=== PATIENT | female | born 1960 | race Two or more races ===

== ENCOUNTER 2020-10-03 10:12 | Outpatient (REF) | payer MEDICAID, SELFPAY ==
--- NOTE | ~2020-10-03 | MM_ITS ---
EXAMINATION: MM DIAGNOSTIC DIGITAL BREAST TOMOSYNTHESIS, BILATERAL CLINICAL INFORMATION: Due for yearly. Follow-up probable benign calcifications central lower left breast and posterior outer right breast. No known family history breast cancer. The lifetime risk of breast cancer based on the Tyrer-Cuzick Model is 6%. COMPARISON: Mammography: 10/03/2019, 04/11/2019, 10/11/2018, 09/23/2018 (BI-RADS 0, 09/13/2017 TECHNIQUE: Digital breast tomosynthesis is performed in both the craniocaudal and mediolateral oblique views along with computer-aided detection (CAD). Synthesized 2D images are generated from the tomosynthesis. Additional magnification views are obtained: Bilateral CC, bilateral ML additional views left breast also obtained: Spot CC and rolled CC x2. FINDINGS: There are scattered areas of fibroglandular density (ACR BI-RADS breast composition Category b). Parenchymal pattern is similar to prior studies. There is no interval mass or architectural abnormality or developing density. There are questionable small asymmetric density mid inner left breast on the CC view shows no persistence on the additional rolled or spot projection. The calcifications for follow-up central 5:00 left breast and posterior outer right breast are stable from prior diagnostic exams. This concludes the long-term surveillance. They are now considered benign. Results are provided to the patient at time of visit by the technologist. MM/MM tomosynthesis diagnostic BI IMPRESSION: 1. No significant changes from prior studies. 2. The bilateral calcifications for follow-up are stable from prior diagnostic exams and now considered benign. ASSESSMENT: BI-RADS 2: Benign RECOMMENDATION: Routine annual mammography screening. This patient's information was entered into a reminder system with a target due date for their next mammogram.
== END 2020-10-03 10:13 | disposition home or self-care (01) ==
LOC: HO.MAMMO 10:12
PROVIDERS: Visit Provider Internal Medicine
DX: R92.1 Mammographic calcification found on diagnostic imaging of breast (principal)
CPT/HCPCS: 77062; 77066

== ENCOUNTER 2021-01-10 11:14 | Outpatient (REF) | payer MEDICAID, SELFPAY ==
--- NOTE | ~2021-01-10 | XR_ITS ---
EXAMINATION: XR THORACIC SPINE CLINICAL INFORMATION: Dorsal joint. COMPARISON: None. TECHNIQUE: AP, lateral, and swimmer's views of the thoracic spine. FINDINGS: Mild levocurvature of the lower thoracic spine centered at the T11 vertebral body. The thoracic kyphosis is maintained. No acute fracture or subluxation. No loss of vertebral body or intervertebral disc height. No lytic or blastic osseous lesion. The visualized lungs are clear. XR/XR thoracic spine 2V IMPRESSION: No acute osseous normality. Minimal levocurvature of the lower thoracic spine, centered at the T11 vertebral body.
== END 2021-01-10 11:15 | disposition home or self-care (01) ==
LOC: HO.XRAY 11:14
PROVIDERS: PCP Internal Medicine; Visit Provider Internal Medicine
DX: M54.9 Dorsalgia, unspecified (principal)
CPT/HCPCS: 72070

== ENCOUNTER 2021-06-04 11:00 | Outpatient (RCR) | payer MEDICAID, SELFPAY | END 2021-07-29 14:11 | disposition home or self-care (01) | LOC: HO.PT 11:00 | PROVIDERS: PCP Internal Medicine; Visit Provider Registered Nurse Community Health | DX: M54.9 Dorsalgia, unspecified (principal) | CPT/HCPCS: 97110; 97161; 97530 ==

== ENCOUNTER 2021-12-17 10:18 | Outpatient (REF) | payer MEDICAID, SELFPAY ==
--- NOTE | ~2021-12-17 | XR_ITS ---
EXAMINATION: XR thoracic spine 3V CLINICAL INFORMATION: Reason for Exam DORSALGIA COMPARISON: Thoracic spine radiographs 01/10/2021 TECHNIQUE: 3 views of the thoracic spine FINDINGS: Vertebral body heights are maintained. Mild levoconvex curvature of the thoracolumbar spine centered at T11 unchanged. Disc space heights are maintained. Paravertebral soft tissues are unremarkable. XR/XR thoracic spine 3V IMPRESSION: Mild levoconvex curvature of the thoracolumbar spine unchanged.
--- NOTE | ~2021-12-17 | XR_ITS ---
EXAMINATION: XR chest 2V CLINICAL INFORMATION: Reason for Exam DORSALGIA COMPARISON: None TECHNIQUE: 2 views of the chest FINDINGS: Clear lungs. No pneumothorax or pleural effusion. Normal cardiomediastinal silhouette. XR/XR chest 2V Impression: * Clear lungs.
== END 2021-12-17 10:19 | disposition home or self-care (01) ==
LOC: HO.XRAY 10:18
PROVIDERS: PCP Internal Medicine; Visit Provider Internal Medicine
DX: M54.9 Dorsalgia, unspecified (principal)
CPT/HCPCS: 71046; 72072

== ENCOUNTER 2022-03-13 10:34 | Outpatient (REF) | payer MEDICAID, SELFPAY ==
--- NOTE | ~2022-03-13 | MM_ITS ---
EXAMINATION: MM SCREENING DIGITAL BREAST TOMOSYNTHESIS, BILATERAL CLINICAL INFORMATION: Screening. Asymptomatic. The lifetime risk of breast cancer based on the Tyrer-Cuzick Model is 5%. COMPARISON: Mammography: 10/03/2020, 10/03/2019, 04/11/2019 TECHNIQUE: Digital breast tomosynthesis is performed in both the craniocaudal and mediolateral oblique views along with computer-aided detection (CAD). Synthesized 2D images are generated from the tomosynthesis. Additional left CC view is provided. FINDINGS: There are scattered areas of fibroglandular density (ACR BI-RADS breast composition Category b). There are no significant masses, abnormal calcifications, or other abnormalities. Parenchymal pattern is similar to prior studies. There is no developing density or architectural abnormality. The axilla and skin contours are unremarkable. No significant changes. MM/MM tomosynthesis screening BI IMPRESSION: -No significant changes from prior exams. -No mammographic evidence of malignancy. ASSESSMENT: BI-RADS 2: Benign RECOMMENDATION: Routine annual mammography screening. This patient's information was entered into a reminder system with a target due date for their next mammogram.
== END 2022-03-13 10:35 | disposition home or self-care (01) ==
LOC: HO.MAMMO 10:34
PROVIDERS: PCP Internal Medicine; Visit Provider Internal Medicine
DX: Z12.31 Encounter for screening mammogram for malignant neoplasm of breast (principal)
CPT/HCPCS: 77063; 77067

== ENCOUNTER → 2022-04-01 14:15 | Outpatient (BNVA) | payer MEDICAID, SELFPAY | PROVIDERS: PCP Internal Medicine; Visit Provider Surgery | DX: Z12.11 Encounter for screening for malignant neoplasm of colon (principal) | CPT/HCPCS: 99202 ==

== ENCOUNTER 2022-06-16 05:56 | Day surgery (SDC) | payer MEDICAID, SELFPAY ==
[2022-05-04 12:03] VITALS: BMI 20.5
--- NOTE | 2022-05-07 08:58 | HO.ANESPROP2 ---
HPI - Anesthesia Eval Consult details Narrative: 61yo F for Colonoscopy with poss Polypectomy PMFSH Active Problems Active Problems: All Active Problems (Updated 04/01/22 @ 14:33 by Deny Avila MD) Colon cancer screening (Acute) Hyperlipidemia (Acute) Hypertension (Acute) Past Medical History Medical History (Updated 04/01/22 @ 14:33 by Deny Avila MD) Colon cancer screening Hyperlipidemia Hypertension Surgical History Surgical History (Updated 05/04/22 @ 11:52 by Idalmis Teague RN) History of colonoscopy Hx of tubal ligation Social History Social History Alcohol intake: never Patient Tobacco Use Status: Never used Tobacco Meds Allergies Allergy/AdvReac Type Severity Reaction Status Date / Time lisinopril AdvReac Mild Cough Verified 05/04/22 11:53 Home Medications Medication Instructions Recorded Confirmed Last Taken Type amlodipine 10 mg tablet 10 mg PO DAILY 04/01/22 05/04/22 Unknown History atorvastatin 40 mg tablet 40 mg PO DAILY 04/01/22 05/04/22 Unknown History hydrochlorothiazide 25 mg tablet 25 mg PO DAILY 04/01/22 05/04/22 Unknown History loratadine 10 mg tablet (Allergy 10 mg PO DAILY 04/01/22 05/04/22 Unknown History Relief (loratadine)) magnesium oxide 400 mg (241.3 mg 400 mg PO DAILY 04/01/22 05/04/22 Unknown History magnesium) tablet multivitamin 1 tab PO DAILY 04/01/22 05/04/22 Unknown History polyvinyl alcohol 1.4 % eye drops 0 drp ophthalmic (eye) 04/01/22 04/01/22 Unknown History Exam Exam Date and Time: May 07, 2022 0858 Height,Weight and Vital Signs: Height 5 ft 6 in Weight 57.606 kg Assessment and Plan Assessment Anesthesia Assessment: Chart Reviewed
[2022-06-10 16:46] VITALS: BMI 20.5
--- NOTE | 2022-06-15 09:51 | P.CONAN_ITS ---
Documented by User: Rosalind Granados NP 06/15/22 09:52 HPI - Anesthesia Eval Consult details Narrative: 61yo F for Colonoscopy with poss Polypectomy PMFSH Active Problems Active Problems: All Active Problems (Updated 04/01/22 @ 14:33 by Deny Avila MD) Colon cancer screening (Acute) Hyperlipidemia (Acute) Hypertension (Acute) Past Medical History Medical History Colon cancer screening Hyperlipidemia Hypertension Surgical History Surgical History History of colonoscopy Hx of tubal ligation Social History Social History Alcohol intake: never Patient Tobacco Use Status: Never used Tobacco Use of substances other than those prescribed or required for medical reasons: No Are you DNR?: No Advance Directives: No Advance Directives Information Provided: Yes Meds Allergies Allergy/AdvReac Type Severity Reaction Status Date / Time lisinopril AdvReac Mild Cough Verified 06/16/22 06:25 Home Medications Medication Instructions Recorded Confirmed Last Taken Type amlodipine 10 mg tablet 10 mg PO DAILY 04/01/22 06/16/22 06/16/22 05:00 History atorvastatin 40 mg tablet 40 mg PO DAILY 04/01/22 05/04/22 Unknown History hydrochlorothiazide 25 mg tablet 25 mg PO DAILY 04/01/22 05/04/22 Unknown History loratadine 10 mg tablet (Allergy 10 mg PO DAILY 04/01/22 05/04/22 Unknown History Relief (loratadine)) multivitamin 1 tab PO DAILY 04/01/22 05/04/22 Unknown History polyvinyl alcohol 1.4 % eye drops 0 drp ophthalmic (eye) 04/01/22 04/01/22 Unknown History Exam Exam Date and Time: June 15, 2022 0951 Height,Weight and Vital Signs: Height 5 ft 6 in Weight 57.606 kg Assessment and Plan Assessment Anesthesia Assessment: Chart Reviewed Documented by User: Titi Simms MD 06/16/22 07:30 [facility] Past Medical History Medical History Colon cancer screening Hyperlipidemia Hypertension Family History Family history of problems with anesthesia: No Surgical History Surgical History History of colonoscopy Hx of tubal ligation History of Problems with Anesthesia: No Social History Social History Alcohol intake: never Patient Tobacco Use Status: Never used Tobacco Use of substances other than those prescribed or required for medical reasons: No Are you DNR?: No Advance Directives: No Advance Directives Information Provided: Yes Meds Allergies Allergy/AdvReac Type Severity Reaction Status Date / Time lisinopril AdvReac Mild Cough Verified 06/16/22 06:25 Home Medications Medication Instructions Recorded Confirmed Last Taken Type amlodipine 10 mg tablet 10 mg PO DAILY 04/01/22 06/16/22 06/16/22 05:00 History atorvastatin 40 mg tablet 40 mg PO DAILY 04/01/22 05/04/22 Unknown History hydrochlorothiazide 25 mg tablet 25 mg PO DAILY 04/01/22 05/04/22 Unknown History loratadine 10 mg tablet (Allergy 10 mg PO DAILY 04/01/22 05/04/22 Unknown History Relief (loratadine)) multivitamin 1 tab PO DAILY 04/01/22 05/04/22 Unknown History polyvinyl alcohol 1.4 % eye drops 0 drp ophthalmic (eye) 04/01/22 04/01/22 Unknown History Exam Airway Mallampati Class: II TM Dist: >3cm Neck ROM: Full Loose/Missing/Broken Teeth: No Heart: ok Lungs: ok Assessment and Plan Final Anesthetic Review Family History of Problems with Anesthesia: No History of Problems with Anesthesia: No NPO: Yes ASA Class: II Final Preanesthetic Review: No Changes in Pt Med Stat, Meds/Allgs Chart Reviewed, Consent Obtained/Reviewed and Anes Risks/Benef Reviewed Patient Risk: Low Procedure Risk: Low Anesthetic Plan Anesthetic Plan: MAC: and Agree w/ Assess. and Plan Disposition: Standard PACU
[2022-06-16 06:08] VITALS: BP 156/88; PULSE 123; RESP 16; TEMP 36.3; O2SAT 100
[2022-06-16] MEDS: Lactated Ringers 1,000 ML 100 ML IVCONT (06:24)
--- NOTE | 2022-06-16 07:30 | MHC.SHP ---
Pre-Procedural Eval Section A Date of Service: 06/16/22 Section B Chief Complaint: screening Details of Present Illness: For screening colonoscopy, no GI complaints Relevant Family History (Specify if Yes): No Relevant Social History: None Present Medications: see Short Stay Collaborative assessment Medical History: Significant History ( hypertension, hyperlipidemia) Allergies: Allergies Allergy/AdvReac Type Severity Reaction Status Date / Time lisinopril AdvReac Mild Cough Verified 06/16/22 06:25 Review of Systems Sugical H&P ROS: Negative: Constitution, Cardiovascular, Respiratory, Neurological, Psychiatric, Hem-Onc, Allergic/Immunologic, Gastrointestinal, Genitourinary, Musculoskeletal, Integumentary, Endocrine and Eyes/Ears/Nose/Throat Exam Surgical H&P Exam: Normal: HEENT, Normal: Heart, Normal: Lungs, Normal: Extremities, Normal: Abdomen, Normal: Skin and Normal: Neurological Plan Diagnosis/Plan: Unchanged I have reviewed the history and physical and performed a pertinent physical examination on my patient. No changes have occurred unless specified. Time Spent With Patient Time: Total time managing care of this patient today ____ minutes.
--- NOTE | 2022-06-16 08:07 | P.OP_ITS ---
Operative Note Operative Note Date of Service: 06/16/22 Narrative: Preop diagnosis: Colon cancer screening Postop diagnosis: Normal colonoscopy findings Procedure: Screening colonoscopy Surgeon: Deny Avila MD The patient is a 61-year-old female here for screening colonoscopy. She understood the technique of the procedure. She was aware of the risks, benefits, and alternatives. The patient was brought to the operating room and placed in left lateral decubitus position under monitored anesthesia care. A surgical time-out was done. A full digital rectal exam was done and this did not reveal any significant anal lesions. The tip of the Olympus colonoscope was gently introduced through the anal orifice advanced with insufflation all the way to the cecum. The cecum was intubated. The cecum was identified by visualization of the ileocecal valve as well as the appendiceal orifice. The cecal mucosa was unremarkable. The scope was gradually withdrawn with careful examination of the entire colonic mucosa being done with scope withdrawal. The patient had martir quate bowel prep so it was unlikely that any lesion may have been missed. The rectum was reached and there were no lesions seen. The anal canal was unremarkable. The scope was then withdrawn completely with desufflation. The patient tolerated procedure well. There were no immediate complications. Her next colonoscopy may be in the next 10 years.
[2022-06-16 08:17] VITALS: BP 111/67; PULSE 106; RESP 14; TEMP 36.4; O2SAT 98
[2022-06-16 08:30] VITALS: BP 128/79; PULSE 89; RESP 16; O2SAT 99
[2022-06-16 08:47] VITALS: BP 139/83; PULSE 94; RESP 16; TEMP 36.4; O2SAT 99
== END 2022-06-16 09:22 | disposition home or self-care (01) ==
PROVIDERS: PCP Internal Medicine; Visit Provider Surgery
PROC: 0DBE8ZZ Excision of Large Intestine, Via Natural or Artificial Opening Endoscopic (ICD-10-PCS; CPT 45378; principal; 2022-06-16 07:30)
DX: Z12.11 Encounter for screening for malignant neoplasm of colon (principal); I10 Essential (primary) hypertension; E78.5 Hyperlipidemia, unspecified; Z79.899 Other long term (current) drug therapy; Z88.8 Allergy status to other drugs, medicaments and biological substances
CPT/HCPCS: 45378

== ENCOUNTER 2023-01-28 17:42 | Outpatient (REF) | payer MEDICAID, SELFPAY ==
[2023-02-02 18:49] LABS: HPV mRNA E6/E7 rflx Not Detected (Not Detected)
== END 2023-01-28 17:43 | disposition home or self-care (01) ==
LOC: HO.HHCLNP 17:42
PROVIDERS: Visit Provider Advanced Practice Midwife
DX: Z12.4 Encounter for screening for malignant neoplasm of cervix (principal); Z11.51 Encounter for screening for human papillomavirus (HPV)
CPT/HCPCS: 87624; 88142

== ENCOUNTER 2023-02-18 11:00 | Outpatient (REF) | payer MEDICAID, SELFPAY ==
[2023-02-18 13:01] LABS: MANUAL DIFF FLAG NO
[2023-02-18 13:14] LABS: Basophils Absolute Auto 0.1 X10*3/uL (0.0-0.2); Basophils Percent Auto 1.2 % (0-2); Eosinophils Percent Auto 0.9 % (0-4); Hematocrit 41.9 % (37.0-47.0); Imm Gran Abs Auto 0.01 X10*3/uL (0.00-0.03); Imm Gran Pct Auto 0.2 % (0.0-0.4); Lymphocytes Absolute Auto 1.5 X10*3/uL (1.2-4.9); Lymphocytes Percent Auto 34.3 % (20-40); Mean Corpuscular HGB Conc 33.4 g/dl (31.0-35.0); Mean Corpuscular Hemoglobin 30.9 pg (27.0-33.0); Mean Corpuscular Volume 92.5 fL (80.0-98.0); Mean Platelet Volume 10.5 fL (9.4-12.3); Monocytes Absolute Auto 0.3 X10*3/uL (0.1-1.2); Monocytes Percent Auto 7.9 % (2-11); Neutrophils Absolute Auto 2.4 x10*3/uL (2.0-8.3); Neutrophils Percent Auto 55.5 % (45-73); Platelet Count 329 X10*3/uL (160-400); Red Blood Count 4.53 X10*6/uL (4.20-5.50); Red Cell Distribution Width 11.9 % (11.0-16.0); White Blood Count 4.3 X10*3/uL (4.8-10.8)
[2023-02-18 13:47] LABS: TSH reflex Free T4 0.93 uIU/mL (0.32-4.0)
[2023-02-19 08:03] LABS: Syphilis Screen Nonreactive (Nonreactive)
[2023-02-20 05:35] LABS: Lyme Abs Screen <0.90 index
== END 2023-02-18 11:01 | disposition home or self-care (01) ==
LOC: HO.HHCL 11:00
PROVIDERS: Visit Provider Internal Medicine
DX: L42 Pityriasis rosea (principal)
CPT/HCPCS: 36415; 84443; 85025; 86617; 86618; 86780

== ENCOUNTER 2023-02-24 13:17 | Outpatient (AMB) | payer MEDICAID, SELFPAY ==
--- NOTE | 2023-02-24 13:32 | A.OFFVIS_ITS ---
Intake Vital Signs 02/24/23 13:34 Height 5 ft 5 in Weight 130 lb 1.164 oz BMI 21.6 BP 150/86 H Blood Pressure Location Lt brachial Position Sitting Pulse 102 H Intake Visit Reasons: NPV/HHC/Zarate Adan/Hypertension Intake Note: NPV w EKG Accompanied by: Self / Same As Patient Allergies lisinopril Adverse Reaction (Mild, Verified 02/24/23 13:35) Cough Medication List - Last Reconciled 02/24/23 by Zane Huertas MD amlodipine 10 mg PO DAILY atorvastatin 40 mg PO DAILY hydrochlorothiazide 25 mg PO DAILY loratadine (Allergy Relief (loratadine)) 10 mg PO DAILY multivitamin 1 tab PO DAILY polyvinyl alcohol 1.4% 0 drps ophthalmic (eye) sodium,potassium,mag sulfates 17.5-3.13-1.6 gram (Suprep Bowel Prep Kit) DILUTE; drink full amount early evening before AND next morning at least 2 hr before procedure; follow w 960 mL water PO HPI HPI Comments History of Present Illness Details Bridgett has been referred for evaluation because of abnormal EKG. Discussed using vehicle body sander. She denies any clear-cut complaints like angina or shortness of breath. No documented coronary disease. Has hypertension dyslipidemia on medications. There is a concern for possible anterior infarct on the EKG and hence she is referred. [facility] Medical History (Updated 02/24/23 @ 14:41 by Zane Huertas MD) Colon cancer screening Hyperlipidemia Hypertension Surgical History Hx of tubal ligation History of colonoscopy Social History Alcohol intake: never Patient Tobacco Use Status: Never used Tobacco Review of Systems Const Denies chills, Denies daytime sleepiness, Denies fatigue, Denies fever(s), Denies frequent falls, Denies night sweats, Denies snoring, Denies weakness, Denies weight gain and Denies weight loss Eyes Denies loss of vision ENT Denies dizziness and Denies hearing loss Card Denies chest pain, Denies chest pain with activity, Denies syncope, Denies rapid heart rate, Denies edema, Denies claudication, Denies leg edema, Denies light headedness, Denies palpitations, Denies dyspnea, Denies dyspnea on exertion and Denies orthopnea Resp Denies cough, Denies excessive phlegm production, Denies dyspnea, Denies dyspnea on exertion, Denies snoring and Denies wheezing GI Denies abdominal pain, Denies hematochezia, Denies change in bowel habits, Denies change in stool character, Denies heartburn, Denies nausea and Denies vomiting Denies hematuria, Denies urinary frequency and Denies dysuria Musc Denies arthralgias, Denies muscle weakness, Denies numbness and Denies tingling Skin/Breast Denies nail changes and Denies rash Neuro Denies Abnormal speech present, Denies dizziness, Denies syncope, Denies frequent falls, Denies loss of vision, Denies memory loss, Denies numbness, Denies tingling and Denies weakness Psych Denies depression and Denies memory loss Endo Denies fatigue and Denies palpitations Aller/Immun Denies wheezing Physical Exam Vital Signs: Last Vital Signs Pulse 102 H 02/24/23 13:34 BP 150/86 H 02/24/23 13:34 BMI result Body Mass Index 21.6 Const General: comfortable and no acute distress Orientation/consciousness: patient oriented x3 HEENT Other: Unremarkable Head: Yes normal to inspection Neck Neck: Yes normal visual inspection Chest Chest palpation & inspection: normal inspection of the chest Resp Auscultation: clear to auscultation bilaterally Cardio Palpation: normal PMI Heart sounds: S1 normal heart sound present, S2 normal heart sound present, no gallops, no murmurs and no rubs GI Palpation (GI): Soft to palpation Back/Spine/Pelvis Other: unremarkable Skin General skin exam: no rashes or lesions noted Neuro General: patient oriented x3 Speech: No Abnormal speech present Extrem General: Yes normal to inspection Psych Mental Status: mental status grossly normal Office Procedures EKG Details: EKG with sinus tachycardia, 102/Min; poor R-wave progression across anterior leads and cannot exclude old anterior infarct; [place] [id number], Complete Assessment & Plan Assessment & Plan (1) Abnormal EKG: Code(s): R94.31 - Abnormal electrocardiogram [ECG] [EKG] (2) Hypertension: Code(s): I10 - Essential (primary) hypertension (3) Hyperlipidemia: Code(s): E78.5 - Hyperlipidemia, unspecified Plan In the EKG from primary care physician's office, underlying rhythm is sinus. Possible old anterior septal infarct. These changes are not as prominent in the current EKG. Findings are possibly more likely from body habitus and lead placement less likely from to anterior infarct. She does have risk factors but no overt symptoms. We can start with an echocardiogram and myocardial perfusion imaging study for further evaluation. Based on findings, will plan further care. Orders: Orders CA echo transthoracic complete Today I10 - Essential (primary) hypertension CA stress test Today R07.2 - Precordial pain NM cardiolite stress test Today R07.2 - Precordial pain Coding Level of Care Code New Pt Level 4 (43926) Diagnoses Abnormal EKG R94.31 Hypertension I10 Hyperlipidemia E78.5 CPT Codes EKG - CPT: 19852-[id number], Complete ([id number])
[2023-02-24 13:34] VITALS: BP 150/86; PULSE 102; BMI 21.6
== END 2023-02-24 14:03 | disposition home or self-care (01) ==
PROVIDERS: PCP Student in an Organized Health Care Education/Training Program; Visit Provider Internal Medicine
DX: R94.31 Abnormal electrocardiogram [ECG] [EKG] (principal); I10 Essential (primary) hypertension; E78.5 Hyperlipidemia, unspecified
CPT/HCPCS: 93010; 99204

== ENCOUNTER → 2023-02-24 13:17 | Outpatient (BNVA) | payer MEDICAID, SELFPAY | PROVIDERS: PCP Student in an Organized Health Care Education/Training Program; Visit Provider Internal Medicine | DX: R94.31 Abnormal electrocardiogram [ECG] [EKG] (principal); E78.5 Hyperlipidemia, unspecified; I10 Essential (primary) hypertension | CPT/HCPCS: 93005 ==

== ENCOUNTER 2023-03-29 10:50 | Outpatient (REF) | payer MEDICAID, SELFPAY ==
[2023-03-29 12:21] LABS: Alanine Aminotransferase 15 U/L (0-31); Albumin Level 4.5 g/dL (3.5-5.0); Alkaline Phosphatase 98 U/L (39-117); Anion Gap 14 (12-20); Aspartate Amino Transferase 16 U/L (5-31); Bilirubin Total 0.4 mg/dL (0.0-1.0); Blood Urea Nitrogen 11 mg/dL (9-16); Calcium 9.2 mg/dL (8.4-10.2); Carbon Dioxide 25 mmol/L (22-29); Chloride 107 mmol/L (96-108); Cholesterol 124 mg/dL (<200); Estimated Glomerular Filt Rate > 60; Glucose Random 97 mg/dL (60-115); HDL Cholesterol 31 mg/dL (>40); LDL Cholesterol Calculated 67 mg/dL (<100); Potassium 3.8 mmol/L (3.3-5.1); Sodium 142 mmol/L (135-145); Total Protein 7.4 g/dL (6.5-8.0); Triglycerides 130 mg/dL (<150)
[2023-04-01 12:45] LABS: Vitamin D 25-OH Total 26.7 ng/mL (>30)
[2023-04-02 11:54] LABS: VITAMIN D (1,25 OH) D3 87 pg/mL; Vit D (1,25-Dihydroxy) Total 87 pg/mL (18-72); Vitamin D (1,25 OH) D2 <8 pg/mL
== END 2023-03-29 10:51 | disposition home or self-care (01) ==
LOC: HO.HHCL 10:50
PROVIDERS: Visit Provider Student in an Organized Health Care Education/Training Program
DX: E78.1 Pure hyperglyceridemia (principal)
CPT/HCPCS: 36415; 80053; 80061; 82306; 82652

== ENCOUNTER 2023-04-05 11:10 | Outpatient (REF) | payer MEDICAID, SELFPAY | END 2023-04-05 11:11 | disposition home or self-care (01) | LOC: HO.MAMMO 11:10 | PROVIDERS: PCP Student in an Organized Health Care Education/Training Program; Visit Provider Internal Medicine | DX: Z12.31 Encounter for screening mammogram for malignant neoplasm of breast (principal) | CPT/HCPCS: 77063; 77067 ==

== ENCOUNTER → 2023-04-05 11:15 | Outpatient (BNV) | payer MEDICAID, SELFPAY | PROVIDERS: PCP Student in an Organized Health Care Education/Training Program; Visit Provider Radiology Diagnostic Radiology | DX: Z12.31 Encounter for screening mammogram for malignant neoplasm of breast (principal) | CPT/HCPCS: 77063; 77067 ==

== ENCOUNTER → 2023-04-08 08:57 | Outpatient (REF) | payer MEDICAID, SELFPAY ==
--- NOTE | ~2023-04-08 | NM_ITS ---
Exercise Myocardial perfusion study Indication: Precordial chest pain to evaluate for myocardial ischemia Technique: The patient was brought in for an exercise perfusion study on 04/08/2023. Patient performed exercise as per Erick protocol and was injected 25 mCi of sestamibi was given intravenously one target HR was achieved. Images were obtained using the SPECT gamma camera interlaced with the gating device. Images were obtained in supine position. Resting perfusion study was performed on 04/13/2023. Patient was administered 25 mCi of sestamibi intravenously at rest. Images were then obtained in supine position. Images obtained with and without CT attenuation. Total DLP 79 mGy-cm. Images were processed with the software and compared side to side in short axis, horizontal long axis and vertical long axis views. Findings: The stress perfusion imaging was somewhat SUBOPTIMAL due to intense subdiaphragmatic uptake interfering with inferior wall uptake The stress perfusion study showed non attenuated images show normal uptake of radiotracer in all segments of LV myocardium. Attenuation corrected images show mildly reduced uptake in the septum of the LV myocardium.. The gated study shows normal LV systolic function with calculated LVEF of greater than 70%. LV cavity is normal in size. The gated study shows normal systolic wall thickening and contraction of all segments. There is no transient ischemic dilation. Resting study shows no change in perfusion pattern compared to stress perfusion study. Gating at rest reveals normal systolic wall motion with ejection fraction at greater than 70%. The findings are consistent with normal myocardial perfusion. NM/NM cardiolite stress test Impression: 1. Normal myocardial perfusion 2. Gated LVEF is greater than 70% 3. Transient ischemic dilatation not present Stress EKG is negative for ischemia
--- NOTE | 2023-04-08 09:01 | CA_ITS ---
Transthoracic Echocardiogram Patient (Last, First, Middle): Bridgett Sims A Gender: Female Date of : 1960 Age: 62 Procedure Date: 04/08/2023 Procedure Type: Transthoracic Echocardiogram Location: OP Height: 165.1 cm Weight: 56.25 kg BSA: 1.61 m2 Heart Rate: 101 bpm BP: 127 / 74 mmHg Costing Analyst: TO Referring MD: Zane Huertas MD Multineedle Shirrer: Byron Macdonald MD Symptoms: I10 - Essential (primary) hypertension Study Quality: Adequate ECG Rhythm: Tachycardia Conclusions: - Essentially normal study Findings Procedure Information Contrast agent, definity, is being given per protocol without apparent complications. Left Ventricle Normal left ventricular size, thickness, and systolic function. The visually estimated ejection fraction is between 65-70%. Spectral Doppler is indicative of a normal filling pattern. Right Ventricle Normal right ventricular cavity size and systolic function. Atria Both atria are normal in size. There is no evidence of interatrial shunt. Aortic Valve Normal aortic valve structure and function. There is no aortic valve stenosis. There is no aortic valve regurgitation. Mitral Valve Normal mitral valve structure and function. There is trace mitral valve regurgitation. There is no mitral valve stenosis. Pulmonic Valve The pulmonic valve is likely normal. Tricuspid Valve Normal tricuspid valve structure. Tricuspid regurgitation envelope is inadequate for calculation of right ventricular systolic pressure. Normal right atrial pressure. Great Vessels All visible segments of the aorta are normal in size. The pulmonary artery was not well visualized. Venous The inferior vena cava is normal in size and collapses greater than 50% with inspiration. Pericardium/Pleural There is no evidence of pericardial effusion. Prior Study Comparison No prior study available for comparison. Measurements 2D Linear Measurements IVSd: 1.02 0.6-0.9/0.6-1.0 cm LVIDd: 3.40 3.9-5.3/4.2-5.9 cm LVIDd Index: 2.11 2.4-3.2/2.2-3.1 cm/m2 LVIDs: 2.13 2.0-3.6 cm LVPWd: 0.95 0.7-1.1 cm LA Diam: 2.60 2.7-3.8/3.0-4.0 cm LAIDs Index: 1.61 1.5-2.3 cm/m2 LV Mass: 120.53 67-162/88-224 g LV Mass Index: 74.86 43-95/49-115 g/m2 LVOT Diam: 1.80 3.0+(-)1.3 cm 2D Systolic Function EF 4C: 59.60 >55% EF 2C: 73.70 >55% EF BiP: 67.10 >55% Aortic Valve AoV Pk Flaco: 1.75 AoV Mn Flaco: 1.22 AoV VTI: 0.33 AoV Pk Grad: 12.00 Aov Mn Grad: 7.00 NEHA Cont.VTI: 1.97 LVOT LVOT Pk Flaco: 1.43 LVOT Mn Flaco: 0.98 LVOT VTI: 0.25 LVOT Pk Grad: 8.00 LVOT Mn Grad: 4.00 LVOT Diam: 1.80 LVOT Area: 2.54 Right Ventricle TAPSE (mm): 23.60 TVS' Flaco: 16.40 Tricuspid Valve RA Press: 3.00 Great Vessels Aorta Sinus of Valsalva: 2.67 2.0-3.[address] Ridge: 2.22 1.7-3.4 cm Ao Asc: 2.90 2.1-3.4 cm Updated in Other Vendor System with Status of Final Byron Macdonald MD electronically signed on 04/09/2023 1:29:01 PM with status of Final
--- NOTE | 2023-04-08 09:01 | CA_ITS ---
Acquisition Time: 2023-04-08 10:42:33 Total Exercise Time: 00:07:00 Test Indications: R07.2 - Precordial pain Medications: Protocol: SRIDEVI Max HR: 153 BPM 97% of Pred: 157 BPM Max BP: 174/078 mmHG Max Work Load: 8.5 METS Exercise stress test exercise 7 min of Sridevi protocol 97% MPHR, without anginal symptoms, with isolated PVC, with normotensive response to exercise, without EKG changes. Nuclear images pending. Test reviewed with Dr. Macdonald Referred By: Zane Huertas Overread By: Allyn Benjamin
== END ==
LOC: HO.CARD 08:57
PROVIDERS: PCP Student in an Organized Health Care Education/Training Program; Visit Provider Internal Medicine
DX: R07.2 Precordial pain (principal); I10 Essential (primary) hypertension
CPT/HCPCS: 78452; 93017; 93306; A9500; Q9957

== ENCOUNTER → 2023-04-08 09:01 | Outpatient (BNV) | payer MEDICAID, SELFPAY | PROVIDERS: PCP Student in an Organized Health Care Education/Training Program; Visit Provider Nurse Practitioner | DX: R07.2 Precordial pain (principal); R00.0 Tachycardia, unspecified | CPT/HCPCS: 78452; 93016; 93018; 93306 ==

== ENCOUNTER 2023-04-15 09:42 | Outpatient (AMB) | payer MEDICAID, SELFPAY ==
[2023-04-15 10:00] VITALS: BP 120/80
--- NOTE | 2023-04-15 10:00 | A.OFFVIS_ITS ---
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 Last co testing was done in 11/20 was negative. The patient has no vaginal bleeding pelvic pain or any other concerns PFSH Medical History Colon cancer screening Hyperlipidemia Hypertension Surgical History Hx of tubal ligation History of colonoscopy Social History Alcohol intake: never Patient Tobacco Use Status: Never used Tobacco Patient : No Female Reproductive History Menstrual Age of Menarche: 13 control method: permanent sterilization Total pregnancies: 4 Full term: 4 Number of Living Children: 4 Review of Systems Const All systems reviewed & are unremarkable except as noted in HPI and below Physical Exam Vital Signs: Last Vital Signs BP 120/80 04/15/23 10:00 BMI result Body Mass Index 20.0 General: Yes no CVA tenderness External Female Exam: normal external appearance and normal appearance of the urethra Speculum Exam - Vagina: normal appearance of the vagina, normal palpation, no lesions and no masses Speculum Exam - Cervix: normal appearance of the cervix, normal palpation, no lesions, no masses, nontender and Other cervical findings present (Three cervical polyps) Bimanual exam- vagina & uterus: normal bimanual exam, normal palpation, uterine size normal, normal palpation, uterine shape normal, No Cervical tenderness present and non-tender Bimanual Exam- Adnexa, other: normal adnexae Back/Spine/Pelvis Back: no CVA tenderness Office Procedures BLENDING COORDINATOR Biopsy Before the procedure was started, discussed with the patient the procedure technique, alternatives & all the risks associated with the procedure including but not limited to: bleeding , infection, uterine perforation, injury to bladder, vessels, bowels, possible need for transfusion with all its risks, and others. All questions were answered, the patient verbalized understanding and signed the consent. Using a long Tenisha Clamp the 3 endocervical polyps was grasped and twisted around till it came off, hemostasis was secured using pressure. The patient tolerated the procedure well. Instructions were given to the patient to call if bleeding, temp>100.4 occur. The patient verbalized understanding and agreed with the plan. This note was generated with a voice recognition program. Some errors may have been overlooked during the review of this note. Sometimes these errors may affect the content or meaning of a given sentence. [id number] of Cervix Procedure code (CPT) selection complete Assessment & Plan Assessment & Plan (1) Cervical polyp: Code(s): N84.1 - Polyp of cervix uteri Plan: Discussed with the patient the finding on pelvic exam showing cervical polyps, recommended cervical polypectomy. Patient agreed, cervical polypectomies done, see procedure note. Orders: Orders AMB BLENDING COORDINATOR Biopsy Today N84.1 - Polyp of cervix uteri Coding Level of Care Code New Pt Level 3 (89720) Procedure Only Diagnoses Cervical polyp N84.1 CPT Codes BLENDING COORDINATOR Biopsy - CPT: 28437-Csbaui of Cervix ([id number])
== END 2023-04-15 10:21 | disposition home or self-care (01) ==
LOC: HO.HWS 09:42
PROVIDERS: PCP Student in an Organized Health Care Education/Training Program; Visit Provider Obstetrics & Gynecology
DX: N84.1 Polyp of cervix uteri (principal)
CPT/HCPCS: 57500; 99203

== ENCOUNTER 2023-04-15 09:42 | Outpatient (REF) | payer MEDICAID, SELFPAY | END 2023-04-15 09:43 | disposition home or self-care (01) | LOC: HO.LNP 09:42 | PROVIDERS: PCP Student in an Organized Health Care Education/Training Program; Visit Provider Obstetrics & Gynecology | DX: N84.1 Polyp of cervix uteri (principal) | CPT/HCPCS: 57500; 88305; 99202 ==

== ENCOUNTER 2023-05-13 13:15 | Outpatient (AMB) | payer MEDICAID, SELFPAY ==
[2023-05-13 13:37] VITALS: BP 120/82; PULSE 99; BMI 20.7
--- NOTE | 2023-05-13 13:37 | MHC.OFFVIS ---
Intake Vital Signs 05/13/23 13:37 Height 5 ft 5 in Weight 124 lb 5.451 oz BMI 20.7 BP 120/82 Blood Pressure Location Lt brachial Position Sitting Pulse 99 Pulse Source Pulse Oximeter Intake Visit Reasons: f/up stress and echo HS Help Desk Coordinator Required: Yes Help Desk Coordinator Name: donavon alvarado [id number] Allergies lisinopril Adverse Reaction (Mild, Verified 05/13/23 13:40) Cough Medication List - Last Reconciled 05/13/23 by Veronica Molina, DIRECTOR SELECTION AND ADMINISTRATION-C amlodipine 10 mg PO DAILY atorvastatin 40 mg PO DAILY blood pressure test kit-large As directed hydrochlorothiazide 25 mg PO DAILY loratadine (Allergy Relief (loratadine)) 10 mg PO DAILY multivitamin 1 tab PO DAILY omega-3 acid ethyl esters 1 cap PO QAM polyvinyl alcohol 1.4% 0 drps ophthalmic (eye) HPI f/up stress and echo HS HPI Details Bridgett is a 62-year-old female with past medical history of hypertension, hyperlipidemia who was being evaluated for abnormal EKG. She recently underwent an echocardiogram and nuclear stress test and now presents for follow-up. Today she reports she has been feeling well with no concerning symptoms. She does not get chest discomfort, shortness of breath, palpitations. She reports good activity tolerance and exercises routinely. She keeps good tabs on her health and diet. She takes her medications as directed. Certified asl interpreter used. [facility] Medical History Colon cancer screening Hyperlipidemia Hypertension Surgical History Hx of tubal ligation History of colonoscopy Social History Alcohol intake: never Patient Tobacco Use Status: Never used Tobacco Female Reproductive History Menstrual Age of Menarche: 13 Review of Systems Const All systems reviewed & are unremarkable except as noted in HPI and below ENT Denies dizziness Card Denies chest pain, Denies chest pain at rest, Denies chest pain with activity, Denies rapid heart rate, Denies pedal edema, Denies edema, Denies leg edema, Denies lightheadedness, Denies palpitations, Denies dyspnea, Denies dyspnea on exertion and Denies orthopnea Resp Denies cough, Denies dyspnea and Denies dyspnea on exertion GI Denies hematochezia and Denies change in stool character Musc Denies abnormal gait, Denies limited range of motion, Denies muscle cramps, Denies muscle weakness, Denies numbness, Denies radiating pain into limb, Denies stiffness and Denies tingling Neuro Denies abnormal gait, Denies dizziness, Denies numbness and Denies tingling Endo Denies palpitations Physical Exam Vital Signs: Last Vital Signs Pulse 99 05/13/23 13:37 BP 120/82 05/13/23 13:37 BMI result Body Mass Index 20.7 Const General: cooperative, healthy appearing, comfortable and no acute distress Orientation/consciousness: patient oriented x3 Neck Neck: Yes normal visual inspection Resp Effort & Inspection: normal respiratory effort Auscultation: clear to auscultation bilaterally, no crackles, no rales, no rhonchi and no wheezes Cardio Jugular venous distension: no JVD Rate: regular rate Rhythm: regular rhythm Heart sounds: S1 normal heart sound present, S2 normal heart sound present, no murmurs and no rubs Neuro General: patient oriented x3 Extrem General: Yes normal to inspection and No no pedal edema Psych Appearance: grossly normal Mental Status: mental status grossly normal Speech and movement: Normal speech and movement present Assessment & Plan Assessment & Plan (1) Abnormal EKG: Code(s): R94.31 - Abnormal electrocardiogram [ECG] [EKG] Plan: EKG has findings of septal Q-wave, old septal infarct can not be excluded. She does have cardiac risk factors of hypertension and hyperlipidemia. She has no known history of prior PR. she underwent an echocardiogram on 04/08/2023 showing normal study. A nuclear stress test was done on 04/08/2023 with exercise 7 minutes, no anginal symptoms, no EKG changes and normal myocardial perfusion imaging. Today she denies any chest discomfort or shortness of breath. There is no evidence of prior septal infarct. The finding on EKG could be related to lead placement verses body habitus. Continue with risk factor modification including good blood pressure and cholesterol control. Blood pressure in normal range today. Cardiology follow-up as needed. (2) Hypertension: Code(s): I10 - Essential (primary) hypertension Qualifiers: Hypertension type: primary hypertension Qualified Code(s): I10 - Essential (primary) hypertension Plan: As above Plan Time spent on chart review, documentation, interview and assessment Coding Level of Care Code Est Pt Level 3 (59559) Diagnoses Abnormal EKG R94.31 Primary hypertension I10 Hypertension type: primary hypertension
== END 2023-05-13 15:14 | disposition home or self-care (01) ==
PROVIDERS: PCP Student in an Organized Health Care Education/Training Program; Visit Provider Nurse Practitioner Family
DX: R94.31 Abnormal electrocardiogram [ECG] [EKG] (principal); I10 Essential (primary) hypertension
CPT/HCPCS: 99213

== ENCOUNTER → 2023-05-13 13:15 | Outpatient (BNVA) | payer MEDICAID, SELFPAY | PROVIDERS: PCP Student in an Organized Health Care Education/Training Program; Visit Provider Nurse Practitioner Family | DX: R94.31 Abnormal electrocardiogram [ECG] [EKG] (principal); I10 Essential (primary) hypertension | CPT/HCPCS: 99212 ==

== ENCOUNTER 2023-06-15 10:16 | Outpatient (AMB) | payer MEDICAID, SELFPAY ==
--- NOTE | 2023-06-15 10:43 | MHC.OFFVIS ---
Intake Vital Signs 06/15/23 10:46 Height 5 ft 5 in Weight 123 lb 7.342 oz BMI 20.5 BP 110/60 Intake Visit Reasons: Biospy Follow up Allergies lisinopril Adverse Reaction (Mild, Verified 05/13/23 13:40) Cough HPI HPI Comments History of Present Illness Details Presenting post polypectomy for follow-up with no complaints. No pelvic pain or vaginal bleeding. The pathology showed the following: Benign endocervical polyp with cysts. PFSH Medical History Colon cancer screening Hyperlipidemia Hypertension Surgical History Hx of tubal ligation History of colonoscopy Social History Alcohol intake: never Patient Tobacco Use Status: Never used Tobacco Female Reproductive History Menstrual Age of Menarche: 13 Review of Systems Const All systems reviewed & are unremarkable except as noted in HPI and below Reports as per HPI and Reports no additional complaints GI Reports no additional complaints Reports no additional complaints Physical Exam Vital Signs: Last Vital Signs BP 110/60 06/15/23 10:46 BMI result Body Mass Index 20.5 Assessment & Plan Assessment & Plan (1) Cervical polyp: Code(s): N84.1 - Polyp of cervix uteri Plan: Discussed with the patient the results the pathology. Instructions given the patient to call in case of vaginal bleeding. All questions answered the patient verbalized understanding. Coding Level of Care Code Est Pt Level 3 (52487) Diagnoses Cervical polyp N84.1
[2023-06-15 10:46] VITALS: BP 110/60; BMI 20.5
== END 2023-06-15 10:54 | disposition home or self-care (01) ==
LOC: HO.HWS 10:16
PROVIDERS: PCP Student in an Organized Health Care Education/Training Program; Referring Provider Student in an Organized Health Care Education/Training Program; Visit Provider Obstetrics & Gynecology
DX: N84.1 Polyp of cervix uteri (principal)
CPT/HCPCS: 99213

== ENCOUNTER → 2023-06-15 10:16 | Outpatient (BNVA) | payer MEDICAID, SELFPAY | PROVIDERS: PCP Student in an Organized Health Care Education/Training Program; Visit Provider Obstetrics & Gynecology | DX: N84.1 Polyp of cervix uteri (principal); Z98.890 Other specified postprocedural states | CPT/HCPCS: 99212 ==

== ENCOUNTER 2024-01-21 10:57 | Outpatient (REF) | payer MEDICAID, SELFPAY ==
[2024-01-21 13:38] LABS: Hematocrit 42.5 % (37.0-47.0); Hemoglobin 14.3 g/dl (12.0-16.0); Mean Corpuscular HGB Conc 33.6 g/dl (31.0-35.0); Mean Corpuscular Hemoglobin 31.1 pg (27.0-33.0); Mean Corpuscular Volume 92.4 fL (80.0-98.0); Mean Platelet Volume 10.6 fL (9.4-12.3); Platelet Count 316 X10*3/uL (160-400); White Blood Count 4.8 X10*3/uL (4.8-10.8)
[2024-01-21 13:49] LABS: Estimated Average Glucose 105 mg/dL; Hemoglobin A1c % 5.3 % (<6.0)
[2024-01-21 14:04] LABS: Alanine Aminotransferase 16 U/L (0-31); Albumin Level 4.9 g/dL (3.5-5.0); Alkaline Phosphatase 110 U/L (39-117); Anion Gap 15 (12-20); Aspartate Amino Transferase 17 U/L (5-31); Bilirubin Total 0.4 mg/dL (0.0-1.0); Blood Urea Nitrogen 11 mg/dL (9-16); Carbon Dioxide 25 mmol/L (22-29); Chloride 106 mmol/L (96-108); Cholesterol 239 mg/dL (<200); Estimated Glomerular Filt Rate > 60; Glucose Random 94 mg/dL (60-115); HDL Cholesterol 44 mg/dL (>40); LDL Cholesterol Calculated 126 mg/dL (<100); Potassium 3.5 mmol/L (3.3-5.1); Sodium 142 mmol/L (135-145); Total Protein 8.2 g/dL (6.5-8.0); Triglycerides 349 mg/dL (<150)
[2024-01-21 14:08] LABS: Creatinine Urine 132.34 mg/dL; Microalbum/Creatinine Ratio Ur 38.5 ug/mg cr (<30)
[2024-01-21 14:14] LABS: HBS Num1 0.73 mIU/mL (0-7.99); HBc Num1 0.09 S/CO (0.00-0.79); HIV AB/AG Nonreactive (Nonreactive); HIV Num 1 0.04 S/CO (0.00-0.99); Hepatitis B Core Antibody Nonreactive (Nonreactive); Hepatitis B Surface Antigen Negative (Negative); ~HepC Num1 0.11 S/CO (0.00-0.79); ~Hepatitis B Surface Antibody NONREACTIVE (Nonreactive); ~Hepatitis C Antibody Nonreactive (Nonreactive)
[2024-01-21 14:18] LABS: Syphilis Screen Nonreactive (Nonreactive)
[2024-01-21 14:24] LABS: TSH reflex Free T4 1.35 uIU/mL (0.32-4.0); Vitamin D 25-OH Total 48.8 ng/mL (>30)
== END 2024-01-21 10:58 | disposition home or self-care (01) ==
LOC: HO.HHCL 10:57
PROVIDERS: Visit Provider Student in an Organized Health Care Education/Training Program
DX: Z00.00 Encounter for general adult medical examination without abnormal findings (principal); E55.9 Vitamin D deficiency, unspecified
CPT/HCPCS: 36415; 80053; 80061; 82043; 82306; 82570; 83036; 84443; 85027; 86704; 86706; 86780; 86803; 87340; 87389

== ENCOUNTER 2024-01-24 10:37 | Outpatient (REF) | payer MEDICAID, SELFPAY ==
[2024-01-24 14:23] LABS: CT PCR NOT DETECTED (Not Detect.); NG PCR NOT DETECTED (Not Detect.)
== END 2024-01-24 10:38 | disposition home or self-care (01) ==
LOC: HO.HHCL 10:37
PROVIDERS: Visit Provider Student in an Organized Health Care Education/Training Program
DX: Z00.00 Encounter for general adult medical examination without abnormal findings (principal)
CPT/HCPCS: 87491; 87591

== ENCOUNTER 2024-02-15 10:17 | Outpatient (AMB) | payer MEDICAID, SELFPAY ==
--- NOTE | 2024-02-15 10:37 | MHC.OFFVIS ---
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 No complaints. Last Pap/HPV was negative in 02/20 Last Mammogram was BI-RADS 1 in 04/22 Last Colonoscopy was done in 06/22, the recommendation was to repeat in 10 years No previous DEXA scan PFSH Medical History Colon cancer screening Hyperlipidemia Hypertension Surgical History Hx of tubal ligation History of colonoscopy Social History Household Members: Spouse and Children Housing: House Alcohol intake: never Patient Tobacco Use Status: Never used Tobacco Current occupational status: unemployed Sexually active: Yes Sexual orientation: Straight/Heterosexual Gender identity: Female Female Reproductive History Menstrual Age of Menarche: 13 control method: permanent sterilization Menopause type: natural Age of menopause: 47 Total pregnancies: 4 Full term: 4 Number of Living Children: 4 Date of last pap smear: 01/29/23 Date of Mammogram: 04/05/23 Review of Systems Const All systems reviewed & are unremarkable except as noted in HPI and below Card Reports as per HPI Resp Reports as per HPI GI Reports as per HPI and Reports no additional complaints Reports as per HPI Physical Exam Vital Signs: Last Vital Signs BP 120/72 02/15/24 10:42 BMI result Body Mass Index 20.8 Const General: cooperative, healthy appearing and comfortable Chest Chest palpation & inspection: normal inspection of the chest and normal palpation of entire chest wall Breast/axilla inspection: normal inspection of the breasts and normal inspection of the axillae Breast/axilla palpation: normal palpation of the breasts, normal palpation of the axillae and no axillary lymphadenopathy Resp Effort & Inspection: normal respiratory effort Auscultation: clear to auscultation bilaterally Percussion: percussion normal Cardio Palpation: normal PMI Rate: regular rate Rhythm: regular rhythm Heart sounds: no murmurs and no rubs Peripheral pulses: Peripheral pulses 2+ throughout GI Inspection: Yes normal to inspection Palpation (GI): Soft to palpation, nontender, no guarding, not rigid and No hepatosplenomegaly present Percussion: Yes normal to percussion Auscultation: normal bowel sounds Rectal Exam - Female: deferred General: Yes bladder normal to palpation External Female Exam: No lesion Speculum Exam - Vagina: normal appearance of the vagina, normal palpation, normal vaginal discharge and not erythematous Speculum Exam - Cervix: normal appearance of the cervix and normal palpation Bimanual exam- vagina & uterus: normal bimanual exam, normal palpation, uterine size normal, bladder normal to palpation, consistency normal and normal palpation Bimanual Exam- Adnexa, other: normal adnexae, no masses and no tenderness Assessment & Plan Assessment & Plan (1) Well woman exam: Code(s): Z01.419 - Encounter for gynecological examination (general) (routine) without abnormal findings Category: Medical Plan: Co testing not indicated this year. Counseled the patient about the recommended dietary allowance of 1200 mg of Calcium & 600 IU of vitamin D. Instructions given to patient to schedule her next screening Mammogram in 04/23. The patient was instructed to perform monthly self-breast exams and schedule annual exam in a year. All questions answered and the patient verbalized understanding. (2) Osteoporosis screening: Code(s): Z13.820 - Encounter for screening for osteoporosis Category: Medical Plan: Since the patient is weight is below 127 she is a high-risk for osteoporosis , will order DEXA scan, and schedule a 2 week DEXA scan follow-up appointment. All questions answered, the patient verbalized understanding Orders: Orders MM tomosynthesis screening BI Today Z12.31 - Encounter for screening mammogram for malignant neoplasm of breast XR DEXA axial skeleton Today Z78.0 - Asymptomatic menopausal state Coding Level of Care Code Est Pt Prev Care 40-64y(36902) Diagnoses Well woman exam Z01.419 Osteoporosis screening Z13.820
[2024-02-15 10:42] VITALS: BP 120/72; BMI 20.8
== END 2024-02-15 11:08 | disposition home or self-care (01) ==
LOC: HO.HWS 10:17
PROVIDERS: PCP Student in an Organized Health Care Education/Training Program; Visit Provider Obstetrics & Gynecology
DX: Z01.419 Encounter for gynecological examination (general) (routine) without abnormal findings (principal); Z13.820 Encounter for screening for osteoporosis
CPT/HCPCS: 99396

== ENCOUNTER → 2024-02-15 10:17 | Outpatient (BNVA) | payer MEDICAID, SELFPAY | PROVIDERS: PCP Student in an Organized Health Care Education/Training Program; Visit Provider Obstetrics & Gynecology | DX: Z01.419 Encounter for gynecological examination (general) (routine) without abnormal findings (principal); Z13.820 Encounter for screening for osteoporosis; Z78.0 Asymptomatic menopausal state | CPT/HCPCS: 99396 ==

== ENCOUNTER 2024-04-12 10:16 | Outpatient (REF) | payer MEDICAID, SELFPAY ==
--- NOTE | ~2024-04-12 | MM_ITS ---
EXAMINATION: BONE DENSITOMETRY CLINICAL INDICATION: Asymptomatic menopausal state. COMPARISON: This is the patient's baseline examination. TECHNIQUE: Using a [employer] DXA System (software version: 13.1) manufactured by [employer], dual-energy x-ray absorptiometry was performed of the lumbar spine and left hip. The images are of good technical quality. Summary results are attached. FINDINGS: LEFT FEMUR, NECK: BMD 0.800 g/cm2, Z-score -0.1, T-score -1.7, osteopenia. LEFT FEMUR, TOTAL: BMD 0.882 g/cm2, Z-score 0.3, T-score -1.0, normal. AP SPINE L1-L4: BMD 0.915 g/cm2, Z-score -0.4, T-score -2.2, osteopenia. IDENTIFIED RISK FACTORS: Menopause. HISTORY OF FRACTURE: None listed. MEDICATIONS: None listed. MM/XR DEXA axial skeleton IMPRESSION: 1. DIAGNOSIS: Osteopenia based on the lowest T-score value of -2.2 in the lumbar spine applying World Health Organization criteria. 2. 10-YEAR FRACTURE RISK PREDICTION, FRAX: Major osteoporotic fracture (clinical spine, forearm, hip or shoulder) 4.8%. Hip fracture 0.6%. 3. Treatment Recommendations: NOF guidelines recommend consideration for treatment in postmenopausal women and men age 50 and older presenting with the following: -A hip or vertebral (clinical or morphometric) fracture. -T-score less than or equal to -2.5 at the femoral neck or spine after appropriate evaluation to exclude secondary causes. -Low bone mass at the hip or spine and a 10-year fracture probability by FRAX of greater than or equal to 3% for hip fracture or greater than or equal to 20% for major osteoporotic fracture based on the [place] adapted WHO algorithm. 4. Other Recommendations: All treatment decisions require clinical judgment and consideration of individual patient factors, including patient preferences, comorbidities, previous drug use, risk factors not captured in the FRAX model (e.g. frailty, falls, vitamin D deficiency, increased bone turnover, interval significant decline in bone density) and possible under or overestimation of fracture risk by FRAX. Additional medical evaluation for secondary cause of low bone mineral density may be appropriate. FUTURE SCAN RECOMMENDATION: People with diagnosed cases of osteoporosis or at high risk for fracture should have regular bone mineral density tests. For patients eligible for Medicare, routine testing is allowed once every 2 years. The testing frequency can be increased to one year for patients who have rapidly progressing disease, those who are receiving or discontinuing medical therapy to restore bone mass, or have additional risk factors. Electronically signed by: Yared Izaguirre MD 04/13/2024 01:39 PM [facility]
--- NOTE | ~2024-04-12 | MM_ITS ---
EXAMINATION: MM SCREENING DIGITAL BREAST TOMOSYNTHESIS, BILATERAL CLINICAL INFORMATION: Screening. Asymptomatic. COMPARISON: Mammography: Comparison is made with available priors TECHNIQUE: Digital breast mammography with tomosynthesis is performed in both the craniocaudal and mediolateral oblique views along with computer-aided detection (CAD). FINDINGS: There are scattered areas of fibroglandular density (ACR BI-RADS breast composition Category b). There are no significant masses, abnormal calcifications, or other abnormalities. MM/MM tomosynthesis screening BI IMPRESSION: No mammographic evidence of malignancy. ASSESSMENT: BI-RADS BI-RADS 1 - Negative RECOMMENDATION: Routine annual mammography screening. 1 year F/U This examination should not preclude the clinical evaluation of a suspicious palpable abnormality. This patient's information was entered into a reminder system with a target due date for their next mammogram. Electronically signed by: Daily Guzman DO 04/20/2024 06:15 PM [facility]
== END 2024-04-12 10:17 | disposition home or self-care (01) ==
LOC: HO.MAMMO 10:16
PROVIDERS: PCP Student in an Organized Health Care Education/Training Program; Visit Provider Obstetrics & Gynecology
DX: Z12.31 Encounter for screening mammogram for malignant neoplasm of breast (principal); Z13.820 Encounter for screening for osteoporosis; Z78.0 Asymptomatic menopausal state
CPT/HCPCS: 77063; 77067; 77080

== ENCOUNTER → 2024-04-12 11:15 | Outpatient (BNV) | payer MEDICAID, SELFPAY | PROVIDERS: PCP Student in an Organized Health Care Education/Training Program; Visit Provider Internal Medicine | DX: Z12.31 Encounter for screening mammogram for malignant neoplasm of breast (principal) | CPT/HCPCS: 77063; 77067 ==

== ENCOUNTER 2024-04-24 10:26 | Outpatient (REF) | payer MEDICAID, SELFPAY ==
[2024-04-24 14:02] LABS: Creatinine Urine 182.25 mg/dL
[2024-04-24 14:12] LABS: Alanine Aminotransferase 31 U/L (0-31); Albumin Level 4.5 g/dL (3.5-5.0); Alkaline Phosphatase 122 U/L (39-117); Anion Gap 16 (12-20); Aspartate Amino Transferase 27 U/L (5-31); Bilirubin Total 0.4 mg/dL (0.0-1.0); Blood Urea Nitrogen 12 mg/dL (9-16); Calcium 9.3 mg/dL (8.4-10.2); Carbon Dioxide 21 mmol/L (22-29); Chloride 106 mmol/L (96-108); Cholesterol 157 mg/dL (<200); Estimated Glomerular Filt Rate > 60; Glucose Random 95 mg/dL (60-115); HDL Cholesterol 39 mg/dL (>40); LDL Cholesterol Calculated 80 mg/dL (<100); Potassium 3.8 mmol/L (3.3-5.1); Sodium 139 mmol/L (135-145); Total Protein 7.4 g/dL (6.5-8.0); Triglycerides 193 mg/dL (<150)
== END 2024-04-24 10:27 | disposition home or self-care (01) ==
LOC: HO.HHCL 10:26
PROVIDERS: Visit Provider Student in an Organized Health Care Education/Training Program
DX: E78.1 Pure hyperglyceridemia (principal)
CPT/HCPCS: 36415; 80053; 80061; 82043; 82570

== ENCOUNTER 2024-05-02 10:13 | Outpatient (AMB) | payer MEDICAID, SELFPAY ==
--- NOTE | 2024-05-02 10:26 | MHC.OFFVIS ---
Vital Signs 05/02/24 10:28 Height 5 ft 5 in Weight 123 lb 7.342 oz BMI 20.5 Intake Visit Reasons: Dexa Results Vehicle Return Associate Required: Yes Vehicle Return Associate Language: Care Associate Services: Vehicle Return Associate Present (in person) Vehicle Return Associate Name: Lana LAGUNA Information Interpreted: non-clinical & clinical Accompanied by: Self / Same As Patient Allergies lisinopril Adverse Reaction (Mild, Verified 05/02/24 10:28) Cough Post menopausal: Yes HPI Comments Details: The patient is presenting for follow up regarding DEXA scan results. T score @ spine and femoral Neck respectively were=-2.2 /-1.7 and 10 year FRAX risk = 4.8/0.6% for severe osteoporosis and fracture. PFSH Medical History Colon cancer screening Hyperlipidemia Hypertension Surgical History Hx of tubal ligation History of colonoscopy Social History Household Members: Spouse and Children Housing: House Alcohol intake: never Patient Tobacco Use Status: Never used Tobacco Current occupational status: unemployed Sexual orientation: Straight/Heterosexual Gender identity: Female Female Reproductive History Menstrual Age of Menarche: 13 Review of Systems Const All systems reviewed & are unremarkable except as noted in HPI and below Reports as per HPI and Reports no additional complaints GI Reports no additional complaints Reports no additional complaints Physical Exam Vital Signs: BMI result Body Mass Index 20.5 Assessment & Plan Assessment & Plan (1) Osteopenia: Code(s): M85.80 - Other specified disorders of bone density and structure, unspecified site Category: Medical Plan: Discussed with the patient the DEXA results and FRAX risk. FRAX risk and T score showed no evidence of osteoporosis. Discussed with the patient all the options for osteoporosis prevention including lifestyle modifications including Ca+D supplements 1200 mg po qd/800 MIU, Weight bearing exercises and proteine supplements. The patient verbalized understanding and agreed plan will repeat DEXA in 2 years. Coding Level of Care Code Est Pt Level 3 (60982) Diagnoses Osteopenia M85.80
[2024-05-02 10:28] VITALS: BMI 20.5
== END 2024-05-02 10:36 | disposition home or self-care (01) ==
LOC: HO.HWS 10:13
PROVIDERS: PCP Student in an Organized Health Care Education/Training Program; Visit Provider Obstetrics & Gynecology
DX: M85.80 Other specified disorders of bone density and structure, unspecified site (principal)
CPT/HCPCS: 99213

== ENCOUNTER → 2024-05-02 10:13 | Outpatient (BNVA) | payer MEDICAID, SELFPAY | PROVIDERS: PCP Student in an Organized Health Care Education/Training Program; Visit Provider Obstetrics & Gynecology | DX: M85.80 Other specified disorders of bone density and structure, unspecified site (principal) | CPT/HCPCS: 99212 ==

== ENCOUNTER 2024-05-22 09:28 | Outpatient (AMB) | payer MEDICAID, SELFPAY ==
[2024-05-22 09:28] VITALS: BP 140/78; PULSE 105; O2SAT 96; BMI 21.3
--- NOTE | 2024-05-22 09:28 | HO.NEPHOV_ITS ---
Vital Signs 05/22/24 09:28 Height 5 ft 5 in Weight 128 lb BMI 21.3 BP 140/78 H Blood Pressure Location Lt brachial Position Sitting Pulse 105 H Pulse Source Pulse Oximeter Pulse Oximetry (%) 96 Oxygen Delivery Method Room Air Intake Visit Reasons: ENP: Benign Hypertension/ Conf Ticket Attendant Required: Yes Ticket Attendant Name: Parveen [id number] Accompanied by: Self / Same As Patient Allergies lisinopril Adverse Reaction (Mild, Verified 05/22/24 09:30) Cough Medication List - Last Reconciled 05/22/24 by Troy Ferguson MD atorvastatin 40 mg PO DAILY blood pressure test kit-large As directed calcium carbonate-vitamin D3 600 mg-20 mcg (800 unit) 1 tab PO BID diltiazem HCl CD (Cardizem CD) 180 mg PO DAILY hydrochlorothiazide 25 mg PO DAILY loratadine (Allergy Relief (loratadine)) 10 mg PO DAILY multivitamin 1 tab PO DAILY omega-3 acid ethyl esters 1 cap PO QAM polyvinyl alcohol 1.4% 0 drps ophthalmic (eye) HPI Comments Details: Pleasant 63-year-old woman referred for hypertension. She has been on Norvasc 10 mg a day. She had sinus tachycardia. Evaluated by Cardiology. She is intolerant to LUIZ inhibitors which probably caused angioedema. She had a change in voice. [facility] Medical History Colon cancer screening Hyperlipidemia Hypertension Surgical History Hx of tubal ligation History of colonoscopy Social History Household Members: Spouse and Children Housing: House Alcohol intake: never Patient Tobacco Use Status: Never used Tobacco Current occupational status: unemployed Sexual orientation: Straight/Heterosexual Gender identity: Female Female Reproductive History Menstrual Age of Menarche: 13 Review of Systems Const Denies fever(s) and Denies weight loss Card Denies chest pain Resp Denies cough and Denies hemoptysis GI Denies abdominal pain, Denies diarrhea and Denies nausea Musc Denies back pain Neuro Denies focal weakness Physical Exam Vital Signs: Last Vital Signs Pulse 105 H 05/22/24 09:28 BP 140/78 H 05/22/24 09:28 Pulse Ox 96 05/22/24 09:28 Oxygen Delivery Method Room Air 05/22/24 09:28 BMI result Body Mass Index 21.3 Results Reviewed Nephrology Results: Hgb 14.3 g/dl (12.0-16.0) 01/21/24 WBC 4.8 X10*3/uL (4.8-10.8) 01/21/24 Plt Count 316 X10*3/uL (160-400) 01/21/24 Sodium 139 mmol/L (135-145) 04/24/24 Potassium 3.8 mmol/L (3.3-5.1) 04/24/24 Chloride 106 mmol/L (96-108) 04/24/24 Carbon Dioxide 21 mmol/L (22-29) L 04/24/24 BUN 12 mg/dL (9-16) 04/24/24 Creatinine 0.64 mg/dL (0.5-1.4) 04/24/24 Calcium 9.3 mg/dL (8.4-10.2) 04/24/24 Urine Creatinine 182.25 mg/dL 04/24/24 Assessment & Plan Assessment & Plan (1) Hypertension: Code(s): I10 - Essential (primary) hypertension Category: Medical Qualifiers: Hypertension type: primary hypertension Qualified Code(s): I10 - Essential (primary) hypertension Plan Lana has essential hypertension. Blood pressure is suboptimal. She has a reflex tachycardia due to amlodipine. Plan stop amlodipine. Start Cardizem CD 180 mg a day. Titrate dose based on blood pressure and heart rate. Encouraged to stand low-sodium diet. He returned to the office in the next 4 weeks. Based on this we will arrange for a 24 hour ambulatory blood pressure monitoring if needed. Medications: New diltiazem HCl CD (Cardizem CD) 180 mg PO DAILY 90 caps 0RF Coding Level of Care Code New Pt Level 4 (02354) Diagnoses Primary hypertension I10 Hypertension type: primary hypertension
== END 2024-05-22 09:55 | disposition home or self-care (01) ==
PROVIDERS: PCP Student in an Organized Health Care Education/Training Program; Referring Provider Student in an Organized Health Care Education/Training Program; Visit Provider Internal Medicine Hypertension Specialist
DX: I10 Essential (primary) hypertension (principal)
CPT/HCPCS: 99204

== ENCOUNTER → 2024-05-22 09:28 | Outpatient (BNVA) | payer MEDICAID, SELFPAY | PROVIDERS: PCP Student in an Organized Health Care Education/Training Program; Referring Provider Student in an Organized Health Care Education/Training Program; Visit Provider Internal Medicine Hypertension Specialist | DX: I10 Essential (primary) hypertension (principal) | CPT/HCPCS: 99202 ==

== ENCOUNTER 2024-06-19 10:27 | Outpatient (AMB) | payer MEDICAID, SELFPAY ==
[2024-06-19 10:28] VITALS: BP 130/78; PULSE 110; O2SAT 90; BMI 21.6
--- NOTE | 2024-06-19 10:28 | HO.NEPHOV ---
Vital Signs 06/19/24 10:28 Height 5 ft 5 in Weight 130 lb BMI 21.6 BP 130/78 Blood Pressure Location Lt brachial Position Sitting Pulse 110 H Pulse Source Pulse Oximeter Pulse Oximetry (%) 90 L Oxygen Delivery Method Room Air Intake Visit Reasons: Benign Hypertension- Conf Respiratory Therapy Aide Required: Yes Respiratory Therapy Aide Name: Kendy [id number] Accompanied by: Self / Same As Patient Allergies lisinopril Adverse Reaction (Mild, Verified 06/19/24 10:30) Cough Medication List - Last Reconciled 06/19/24 by Troy Ferguson MD atorvastatin 40 mg PO DAILY blood pressure test kit-large As directed calcium carbonate-vitamin D3 600 mg-20 mcg (800 unit) 1 tab PO BID diltiazem HCl CD (Cardizem CD) 180 mg PO DAILY hydrochlorothiazide 25 mg PO DAILY loratadine (Allergy Relief (loratadine)) 10 mg PO DAILY multivitamin 1 tab PO DAILY omega-3 acid ethyl esters 1 cap PO QAM polyvinyl alcohol 1.4% 0 drps ophthalmic (eye) HPI Comments Details: Pleasant 63-year-old woman referred for hypertension. She has been on Norvasc 10 mg a day. She had sinus tachycardia. Evaluated by Cardiology. She is intolerant to LUIZ inhibitors which probably caused angioedema. She had a change in voice. 06/19/24 Tolerating Cardizem PFSH Medical History Colon cancer screening Hyperlipidemia Hypertension Surgical History Hx of tubal ligation History of colonoscopy Social History Household Members: Spouse and Children Housing: House Alcohol intake: never Patient Tobacco Use Status: Never used Tobacco Current occupational status: unemployed Sexual orientation: Straight/Heterosexual Gender identity: Female Female Reproductive History Menstrual Age of Menarche: 13 Physical Exam Vital Signs: Last Vital Signs Pulse 110 H 06/19/24 10:28 BP 130/78 06/19/24 10:28 Pulse Ox 90 L 06/19/24 10:28 Oxygen Delivery Method Room Air 06/19/24 10:28 BMI result Body Mass Index 21.6 Comfortable Neck supple no JVD. Lungs entry equal no rales. Heart S1-S2 heard no gallop or rub. Abdomen soft nontender. Neuro alert awake oriented. No asterixis. Extremities no edema. Results Reviewed Nephrology Results: Hgb 14.3 g/dl (12.0-16.0) 01/21/24 WBC 4.8 X10*3/uL (4.8-10.8) 01/21/24 Plt Count 316 X10*3/uL (160-400) 01/21/24 Sodium 139 mmol/L (135-145) 04/24/24 Potassium 3.8 mmol/L (3.3-5.1) 04/24/24 Chloride 106 mmol/L (96-108) 04/24/24 Carbon Dioxide 21 mmol/L (22-29) L 04/24/24 BUN 12 mg/dL (9-16) 04/24/24 Creatinine 0.64 mg/dL (0.5-1.4) 04/24/24 Calcium 9.3 mg/dL (8.4-10.2) 04/24/24 Urine Creatinine 182.25 mg/dL 04/24/24 Assessment & Plan Assessment & Plan (1) Hypertension: Code(s): I10 - Essential (primary) hypertension Category: Medical Qualifiers: Hypertension type: primary hypertension Qualified Code(s): I10 - Essential (primary) hypertension Plan Lana has essential hypertension. Blood pressure is suboptimal. She has a reflex tachycardia due to amlodipine. Plan stop amlodipine. Start Cardizem CD 180 mg a day. Titrate dose based on blood pressure and heart rate. Encouraged to stand low-sodium diet. He returned to the office in the next 4 weeks. Based on this we will arrange for a 24 hour ambulatory blood pressure monitoring if needed. Orders: Orders Blood Urea Nitrogen 6 Months I10 - Essential (primary) hypertension Electrolytes 6 Months I10 - Essential (primary) hypertension Creatinine 6 Months I10 - Essential (primary) hypertension Coding Level of Care Code Est Pt Level 4 (41011) Diagnoses Primary hypertension I10 Hypertension type: primary hypertension
== END 2024-06-19 10:42 | disposition home or self-care (01) ==
PROVIDERS: PCP Student in an Organized Health Care Education/Training Program; Visit Provider Internal Medicine Hypertension Specialist
DX: I10 Essential (primary) hypertension (principal)
CPT/HCPCS: 99214

== ENCOUNTER → 2024-06-19 10:27 | Outpatient (BNVA) | payer MEDICAID, SELFPAY | PROVIDERS: PCP Student in an Organized Health Care Education/Training Program; Visit Provider Internal Medicine Hypertension Specialist | DX: I10 Essential (primary) hypertension (principal) | CPT/HCPCS: 99212 ==

== ENCOUNTER 2024-11-30 10:08 | Outpatient (AMB) | payer MEDICARE, MEDICAID, SELFPAY ==
--- NOTE | 2024-11-30 10:24 | HO.NEPHOV_ITS ---
Vital Signs 11/30/24 10:25 Height 5 ft 5 in Weight 131 lb BMI 21.8 BP 130/80 Blood Pressure Location Lt brachial Position Sitting Pulse 97 Pulse Source Pulse Oximeter Pulse Oximetry (%) 98 Oxygen Delivery Method Room Air Intake Visit Reasons: Benign Hypertension-Conf Registered Public Health Nurse Required: Yes Registered Public Health Nurse Language: [employer]: Registered Public Health Nurse Present Registered Public Health Nurse Name: Fernando [id number] Information Interpreted: clinical only Accompanied by: Self / Same As Patient Allergies lisinopril Adverse Reaction (Mild, Verified 11/30/24 10:25) Cough Medication List - Last Reconciled 11/30/24 by Troy Ferguson MD atorvastatin 40 mg PO DAILY blood pressure test kit-large As directed calcium carbonate-vitamin D3 600 mg-20 mcg (800 unit) 1 tab PO BID diltiazem HCl CD (Cardizem CD) 180 mg PO DAILY hydrochlorothiazide 25 mg PO DAILY loratadine (Allergy Relief (loratadine)) 10 mg PO DAILY multivitamin 1 tab PO DAILY omega-3 acid ethyl esters 1 cap PO QAM polyvinyl alcohol 1.4% 0 drps ophthalmic (eye) HPI Comments Details: Pleasant 63-year-old woman referred for hypertension. She has been on Norvasc 10 mg a day. She had sinus tachycardia. Evaluated by Cardiology. She is intolerant to LUIZ inhibitors which probably caused angioedema. She had a change in voice. 06/19/24;Tolerating Cardizem 11/30/24 The patient is a 64-year-old female presenting for management of hypertension The patient reports that her blood pressure is generally well-controlled with the use of hydrochlorothiazide and diltiazem. She denies experiencing any lightheadedness, headache, nausea, or vomiting. She adheres to dietary modifications, including reduced salt and sugar intake, and uses honey as a sweetener instead of sugar. She reports not using much salt or fat in her diet. [facility], LAT[facility] Medical History Colon cancer screening Hyperlipidemia Hypertension Surgical History Hx of tubal ligation History of colonoscopy Social History Household Members: Spouse and Children Housing: House Alcohol intake: never Patient Tobacco Use Status: Never used Tobacco Current occupational status: unemployed Sexual orientation: Straight/Heterosexual Gender identity: Female Female Reproductive History Menstrual Age of Menarche: 13 Physical Exam Vital Signs: Last Vital Signs Pulse 97 11/30/24 10:25 BP 130/80 11/30/24 10:25 Pulse Ox 98 11/30/24 10:25 Oxygen Delivery Method Room Air 11/30/24 10:25 BMI result Body Mass Index 21.8 Comfortable Neck supple no JVD. Lungs entry equal no rales. Heart S1-S2 heard no gallop or rub. Abdomen soft nontender. Neuro alert awake oriented. No asterixis. Extremities no edema. Results Reviewed Nephrology Results: Hgb, (12.0-16.0) 14.3 g/dl 01/21/24 WBC, (4.8-10.8) 4.8 X10*3/uL 01/21/24 Plt Count, (160-400) 316 X10*3/uL 01/21/24 Sodium, (135-145) 139 mmol/L 04/24/24 Potassium, (3.3-5.1) 3.8 mmol/L 04/24/24 Chloride, (96-108) 106 mmol/L 04/24/24 Carbon Dioxide, (22-29) 21 mmol/L L 04/24/24 BUN, (9-16) 12 mg/dL 04/24/24 Creatinine, (0.5-1.4) 0.64 mg/dL 04/24/24 Calcium, (8.4-10.2) 9.3 mg/dL Δ 04/24/24 Urine Creatinine 182.25 mg/dL 04/24/24 Assessment & Plan Assessment & Plan (1) Hypertension: Code(s): I10 - Essential (primary) hypertension Category: Medical Qualifiers: Hypertension type: primary hypertension Qualified Code(s): I10 - Essential (primary) hypertension Plan Lana has essential hypertension. Blood pressure is well controlled. She has a reflex tachycardia due to amlodipine. Resolved after stoppign Amlodipine Keep Cardizem CD 180 mg a day. Titrate dose based on blood pressure and heart rate. Encouraged to stay on low-sodium diet. Orders: Orders UA and rflx microscopic 6 Months I10 - Essential (primary) hypertension Basic Metabolic Panel 6 Months I10 - Essential (primary) hypertension Total Protein Urine Random 6 Months I10 - Essential (primary) hypertension Creatinine Urine 6 Months I10 - Essential (primary) hypertension Coding Level of Care Code Est Pt Level 4 (56006) Diagnoses Primary hypertension I10 Hypertension type: primary hypertension
[2024-11-30 10:25] VITALS: BP 130/80; PULSE 97; O2SAT 98; BMI 21.8
--- OUTSIDE RECORDS SUMMARY | 2024-11-30 10:51 | XMS_ITS | Encounter Summary ---
Author Organization [employer] Address [address] [facility] [address] [place] [address] Care Team Providers Care Dyeing Machine Feeder Name Role Phone Kim Goldman MD Primary Care Pro vider Encounter Details Date Type Department Care Team (Late st Contact Info) Description 05/21/2024 Orders Only [facility] MEDICINE [address] [place] [address] ProviderDorcas MD Social History Tobacco Use Types Packs/Day Years Used Date Smoking Tobacco: Never Passive Smoke Exposure: Never Smokeless Tobacco: Never Alcohol Use Standard Drinks/Week Comments Never 0 (1 standard drink = 0.6 oz pur e alcohol) Depression Answer Date Recorded Patient Health Questionnaire-9 Score 0 12/07/2023 Patient Health Questionnaire-9 Score 0 12/07/2023 Last PHQ-9: Questionnaire Data Not on file 0 12/07/2023 Housing Stability Answer Date Recorded What is your housing situation today? I have charleshiren dyer 11/29/[address] you li ve. Do you have problems with any of the following? None of the above 11/29/2023 Food Insecurity Answer Date Recorded Within the past 12 months, y ou worried that your food would run out before you got money to buy more: Never True 11/29/2023 Within the past 12 months,th e food you bought just didn't last and you didn't have enough money to get more: Never True 05/2023 Transportation Answer Date Recorded In the past 12 months, has l ack of transportation kept you from medical appts, meetings, work or from getting things needed for daily living? No 11/29/2023 Utilities Answer Date Recorded In the past 12 months, has t he electric, gas, oil or water [employer] threatened to shut off services in your home? No 11/29/2023 Depression Answer Date Recorded Patient Health Questionnaire-2 Score 0 12/07/2023 Internet Access Answer Date Recorded Internet Access Q1 Yes 01/31/2024 Internet Access Q2 Not on file 01/31/2024 Comments No Sex and Gender Information Value Date Recorded Sex Assigned at Female 03/30/2022 10:18 AM EDT Legal Sex Female 10:18 AM EDT Gender Identity Female 03/30/2022 10:18 AM EDT Sexual Orientation Straight 03/30/2022 10 :18 AM EDT documented as of this encounter Plan of Treatment Upcoming Encounters Date Type Department Care Team (Late st Contact Info) Description 12/13/2024 10:45 AM EDT Office Visit [facility] MEDICINE [address] [place] [address] Kim Goldman MD [address] [place] [address] 01/09/2025 11:00 AM EDT Procedure Visit [facility] MEDICINE [address] [place] [address] Mera Ortiz, CNM [address] [place] [address] 03/05/2025 11:00 AM EDT Office Visit [facility] OPTOMETRY [address] [place] [address] Lisa Tyson, OD [address] [place] [address] documented as of this encounter Procedures Procedure Name Priority Date/Time Associated Diagnosis Comments HM COLONOSCOPY Routine 06/16/2022 3:57 PM EST documented in this encounter Results * Hm Colonoscopy (06/16/2022 3:57 PM EST) us Historical Provider HEALTH MAINTENANCE Final Result documented in this encounter Visit Diagnoses Not on filedocumented in this encounter Additional Health Concerns Assessment Noted Time PHQ-9 Depression Total Score: 0 12/07/19 24 10:33 AM EDT documented as of this encounter Care Teams Dyeing Machine Feeder Relationship Specialty Start Date End Date Kim Goldman MD [address] [place] [id number] PCP - General Internal Medicine 10/08/22 documented as of this encounter
== END 2024-11-30 10:33 | disposition home or self-care (01) ==
PROVIDERS: PCP Student in an Organized Health Care Education/Training Program; Visit Provider Internal Medicine Hypertension Specialist
DX: I10 Essential (primary) hypertension (principal)
CPT/HCPCS: 99214

== ENCOUNTER → 2024-11-30 10:08 | Outpatient (BNVA) | payer MEDICAID, SELFPAY | PROVIDERS: PCP Student in an Organized Health Care Education/Training Program; Visit Provider Internal Medicine Hypertension Specialist | DX: I10 Essential (primary) hypertension (principal); I47.11 Inappropriate sinus tachycardia, so stated | CPT/HCPCS: 99212 ==

== ENCOUNTER 2025-04-18 10:04 | Outpatient (REF) | payer MEDICARE, MEDICAID, SELFPAY ==
--- OUTSIDE RECORDS SUMMARY | 2025-04-18 18:58 | XMS_ITS | Encounter Summary ---
Author Organization [employer] Address [address] [place] [address] [address] [place] [address] Care Team Providers Care Baby Stroller Rental Clerk Name Role Phone Kim Goldman MD Primary Care Pro vider Reason for Visit * Reason Onset Date Comments jul recall 04/13/2025 Encounter Details Date Type Department Care Team ([facility] st Contact Info) Description 04/13/2025 Telephone [facility] MEDICINE [address] [place] [address] Kim Goldman MD [address] [place] [address] jul recall Social History Tobacco Use Types Packs/Day Years Used Date Smoking Tobacco: Never Passive Smoke Exposure: Never Smokeless Tobacco: Never Alcohol Use Standard Drinks/Week Comments Never 0 (1 standard drink = 0.6 oz pur e alcohol) Depression Answer Date Recorded Patient Health Questionnaire-9 Score 0 03/15/2025 Patient Health Questionnaire-9 Score 0 03/15/2025 Last PHQ-9: Questionnaire Data Not on file 1 Housing Stability Answer Date Recorded What is your housing situation today? I have charles sing 11/29/[address] you li [...] t he electric, gas, oil or water company threatened to shut off services in your home? No 11/29/2023 Depression Answer Date Recorded Patient Health Questionnaire-2 Score 0 03/15/2025 Internet Access Answer Date Recorded Internet Access Q1 Yes 01/31/2024 Internet Access Q2 Not on file 01/31/2024 Comments No Sex and Gender Information Value Date Recorded Sex Assigned at Female 03/30/2022 10:18 AM EDT Legal Sex Female 10:18 AM EDT Gender Identity Female 03/30/2022 10:18 AM EDT Sexual Orientation Straight 03/30/2022 10 :18 AM EDT documented as of this encounter Miscellaneous Notes * Telephone Encounter - Mima Hare [place] - 04/13/2025 11:22 AM EST Telephone call to patient to schedule a recall appointment. No answer, unable to leave voicemail (not set up).. Recall letter sent. Visit type: Office Visit Appointment notes: labs,f BP, HR Month due: July With: Elliot Please schedule appointment above if patient returns call documented in this encounter Plan of Treatment Upcoming Encounters Date Type Department Care Team (Late st Contact Info) Description 07/10/2025 11:30 AM EST Office Visit [facility] MEDICINE [address] [place] [phone] Kim Goldman MD [address] [place] [address] documented as of this encounter Visit Diagnoses Not on filedocumented in this encounter Additional Health Concerns Assessment Noted Time PHQ-9 Depression Total Score: 0 03/15/20 11:37 AM EDT documented as of this encounter Care Teams Baby Stroller Rental Clerk Relationship Specialty Start Date End Date Kim Goldman MD [address] [place] [id number] PCP - General Internal Medicine 10/08/22 documented as of this encounter
--- OUTSIDE RECORDS SUMMARY | 2025-04-18 18:58 | XMS_ITS | Clinical Summary ---
Author Organization [employer] Address [address] [facility] 7[address] [place] [address] Care Team Providers Care Chain Sales Consultant Name Role Phone Kim Goldman MD Primary Care Pro vider Allergies Active Allergy Reactions Criticality Noted Date Comments Lisinopril 07/21/2013 Other reaction(s): cough, possible angioedema Medications Blood Pressure kit 1 kit in the morning. 1 kit 3 Active loratadine (Claritin) 10 MG tablet Take 1 tablet (10 mg) by mouth in the morning. 90 tablet 4 Active amLODIPine (Norvasc) 10 MG tabletIndications :Primary hypertension TAKE 1 TABLET BY MOUTH EVERY DAY 90 tablet 5 Active Calcium Carb-Cholecalcife rol (Calcium 600/Vitamin D3) 600-20 MG-MCG tablet Take 1 tablet by mouth at noon and 1 tablet in the evening. 180 tablet 1 5 Active atorvastatin (Lipitor) 40 MG tablet Take 1 tablet (40 mg) by mouth Once per day. 90 tablet 1 5 Active omega-3 acid ethyl esters (Lovaza) 1 g capsuleIndication s:Hypertriglyceri demia Take 1 capsule (1 g) by mouth Once per day. 90 capsule 1 5 03/15/20 26 Active dilTIAZem CD (Cardizem CD) 180 MG 24 hr capsule Take 1 capsule by mouth Once per day. 5 Active Active Problems Problem Noted Date Diagnosed Date Osteopenia 04/26/2024 Sinus tachycardia 01/27/2024 Umbilical hernia 12/07/2023 Seasonal allergic rhinitis 10/05/2023 Abnormal EKG 10/27/2022 Assessment & Plan (11/26/2022 12:21 PM EDT): -EKG done x HTN to have baseline :-noted poor R wave progression in anterior leads V2-V3 and Q wave in lead III --pt denies any CVs symptoms nor hx -echo 2016: normal .EF 60-65% -referred to cardiology in setting of comorbidities HTN,HLD and abnormal EKG --Has apt x 01/27/2023 Assessment & Plan (10/27/2022 1:54 PM EDT): -EKG done today x HTN to have baseline :-noted poor R wave progression in anterior leads V2-V3 and Q wave in lead III --pt denies any CVs symptoms nor hx -echo 2016: normal .EF 60-65% -referred to cardiology today in setting of comorbidities HTN,HLD and abnormal EKG Health care maintenance 10/27/2022 Assessment & Plan (11/26/2022 12:26 PM EDT): -menopause age-55 y of age -pap smear: 01/2018 Neg/neg HPV from records-done here-put already in call back x 01/2023 -MM 02/2022:BI-RADS 2: Benign-will refer at next apt -Colonoscopy 05/2022: Normal --to repeat in 10 years per records obtained -DEXA scan: never -will refer at 64 y of age -vaccines: COVID 19 Modernax2--offered today Bivalent again but refusing, s/p tdap 2018, shingrix advised today again but wants to hold x now , hep B not immune- refuse vaccination --- 09/2022 vit D level slight elevated at 74 ( range 18-72) -denies taking any MVI ---will repeat vit D level in 3 mo Assessment & Plan (10/27/2022 1:47 PM EDT): -menopause age-will check at next apt -pap smear: 01/2018 Neg/neg HPV from records-done here-put already in call back x 01/2023 -MM 02/2022:BI-RADS 2: Benign -Colonoscopy 05/2022: Normal --to repeat in 10 years per records obtained -DEXA scan: never -will refer at 64 y of age -vaccines: COVID 19 Modernax2--offered today Bivalent but refusing, s/p tdap 2018, shingrix advised today but wants to hold x now --- -labs x annual exam -will RTC in fasting -pt agreed to have STI testing including HIV to have for baseline Rosacea 10/27/2022 Assessment & Plan (11/26/2022 12:25 PM EDT): Pt with findings of rosacea in face and w mx macular lesions in skin -referred to dermatology x complete skin eval x skin ca screening and x rosacea management--reports to have apt x 11/2022 Assessment & Plan (10/27/2022 1:39 PM EDT): Pt with findings of rosacea in face and w mx macular lesions in skin -referred today to dermatology x complete skin eval x skin ca screening and x rosacea management Hypertriglyceridemia 03/02/2017 Assessment & Plan (11/26/2022 12:24 PM EDT): 09/2022 Total ch 156, HDL 45, LDL 73, trig 290 ASCVD 6.9% ( rec x statins) -life style changes advised -refuse nutritinist referral-states saw two in the past and wants to hold x now -Pt OFF statins x last month at time of labs -continue atorvastatin daily -will add omega 3 daily -reports took before -repeat chem and fasting lipids in 3 mo Assessment & Plan (10/27/2022 1:53 PM EDT): Pt OFF statins x last month -will repeat labs in fasting and advised to resume medication -taking per pt x 1 year Benign hypertension 12/04/2011 Assessment & Plan (02/18/2023 10:56 AM EDT): Uncontrolled today. Continue to use amlodipine daily and FU with PCP. Assessment & Plan (11/26/2022 12:20 PM EDT): BP here today borderline elevated as well HR -however all home BP readings are wnl Pt states getting anxious at doctor's office so seems in part reactive 09/2022 Microalb neg -advised to continue checking at least twice a week BP -pt has upcoming visit w reactor technician in 12/2022 And will discuss the need x 24 h BP monitoring -opthalmo referred already-pd to get a call x apt Assessment & Plan (10/27/2022 1:49 PM EDT): BP here today elevated at 159/99, HR 99 Pt states home BP is always normal at 120/80s and states getting anxious here -advised to check BP daily and bring readings at next visit -opthalmo referred today -microalb today ordered Resolved Problems Problem Noted Date Diagnosed Date Resolved Date Cervical polyp 04/02/2023 01/27/2024 Pityriasis rosea 02/18/2023 04/02/2023 Assessment & Plan (02/18/2023 10:59 AM EDT): [place] patch is located on mid back, I gave pt information about Dx. Prescription of betamethasone+ benadryl caps to use PRN. Avoid sun exposure when using steroid cream. Refer to clinic RTC in 4-6 weeks if she doesn't notice results. Encounters Date Type Department Care Team Description 04/13/[address] [phone] Kim Goldman MD feb recall 04/06/2025 2:00 PM EST Office Visit [address] [address] [place], [place] Preop examination (Primary Dx); Benign hypertension 04/06/2025 Travel 04/05/2025 Telephone [facility] [address] [place] [address] Kim Goldman MD chartprep 03/30/[address] [address] Kim Goldman MD Pre-op Exam 03/15/2025 10:45 AM EDT Office Visit [facility] MEDIC[facility] [address] [place] [address] Kim Goldman MD Hypertriglyceridemia (Primary Dx); Primary hypertension; Annual physical exam 03/15/2025 Refill [facility]INE [address] [place] [address] Kim Goldman MD Primary hypertension 03/15/2025 Travel 03/14/2025 Telephone [facility] MEDICINE [address] [place] [phone] Kim Goldman MD chart prep 03/08/2025 Patient Outreach [address] [address] Kim Goldman MD Pre-visit Planning (Pre-visit planning - voicemail not set up ) 03/05/2025 11:00 AM EDT Office Visit [facility] OPTOMETRY [address] [place] [address] Jah, Lisa, OD Combined forms of age-related cataract of both eyes (Primary Dx); Dry eyes; Optic nerve asymmetry, right; Presbyopia 03/05/2025 Travel from Last 3 Months Immunizations Immunization Administration Dates Next Due Influenza injectable quadriv alent IIV4 with preservative 02/24/2018,04/13/2016 Influenza injectable quadrivalent preservative f ree 03/02/2017 Influenza, IIV3, injectable 03/03/2011 Influenza, Split (incl. purified surface antigen ) 07/21/2013,04/07/2012 TD (adult), 2 Lf tetanus tox oid, preservative free, adsorbed 06/02/2007 Tdap 10/27/2018 Family History Medical History Relation Name Comments HTN Sister Breast cancer Neg Hx Colon cancer Neg Hx Ovarian cancer Neg Hx Relation Name Status Comments Father Mother Sister Social History Tobacco Use Types Packs/Day Years Used Date Smoking Tobacco: Never Passive Smoke Exposure: Never Smokeless Tobacco: Never Tobacco Cessation:Counseling Given: Not Answered Alcohol Use Standard Drinks/Week Comments Never 0 (1 standard drink = 0.6 oz pur e alcohol) Depression Answer Date Recorded Patient Health Questionnaire-9 Score 0 03/15/2025 Patient Health Questionnaire-9 Score 0 03/15/2025 Last PHQ-9: Questionnaire Data Not on file 1 Housing Stability Answer Date Recorded What is your housing situation today? I have charles dyer 11/29/[address] you [...] Orientation Straight 03/30/2022 10 :18 AM EDT Last Filed Vital Signs Vital Sign Reading Time Taken Comments Blood Pressure 165/89 04/06/2025 2:00 PM EST Pulse 110 04/06/2025 1:51 PM EST Temperature 36.8 C (98.3 F) 04/06/2025 1:51 PM EST Respiratory Rate 15 04/06/2025 1:51 PM EST Oxygen Saturation 97% 04/06/2025 1:51 PM EST Inhaled Oxygen Concentration - - Weight 58.6 kg (129 lb 3.2 oz) 04/06/2025 1:51 P M EST Height 165.1 cm (5' 5 ) 04/06/2025 1:51 PM EST Body Mass Index 21.5 04/06/2025 1:51 PM EST Plan of Treatment Upcoming Encounters Date Type Department Care Team (Late st Contact Info) Description 07/10/2025 11:30 AM EST Office Visit [facility] MEDICINE [address] [place], [place] [phone] Kim Goldman MD [address] [place] [address] Health Maintenance Due Date Last Done Comments CT Colonography 1960 FIT DNA/Cologuard 1960 FIT 1960 FOBT 1960 Sigmoidoscopy 1960 Pneumococcal Vaccine: 50+ Years (1 of 1 - PCV) 11/12/2009 Zoster Vaccines (1 of 2) 11/12/2009 COVID-19 Vaccine (3 - season) 2025 09/04/2020, 08/07/2020 Influenza Vaccine (#1) 2025 8, 03/02/2017, 04/13/2016, Additional history exists Alcohol/Substance Use Screening 04/26/2025 04/26/2024 SDOH Screening 12/06/2025 12/06/2024 Depression Screening 03/15/2026 03/15/2025, 03/15/20 25 Tobacco Screening 04/06/2026 04/06/2025 Mammogram 04/12/2026 04/12/2024, 11/10/2022, 03/13/2022, Additional history exists Cervical Cancer Screening 01/29/2028 HPV/Cotest 01/29/2028 01/28/2023, 02/02/2018 Pap Smear 01/29/2028 01/28/2023 DTaP/Tdap/Td Vaccines (2 - Td or Tdap) 10/27/2028 10/27/2018, 06/02/2007 Lipid Panel 04/24/2029 04/24/2024, 0807/2023, 03/29/2023, Additional history exists Colonoscopy 06/16/2032 06/16/2022, 06/16/2022 Colorectal Cancer Screening 06/16/2032 RSV Patients and Patients Aged 60 years or older (1 - 1-dose 75+ series) 11/12/2034 Hepatitis C Screening Completed 01/21/2024, 023 HIB Vaccines Aged Out No longer eligi ble based on patient's age to complete this topic HPV Vaccines Aged Out No longer eligi ble based on patient's age to complete this topic Hepatitis A Vaccines Aged Out No long er eligible based on patient's age to complete this topic Hepatitis B Vaccines Aged Out No long er eligible based on patient's age to complete this topic IPV Vaccines Aged Out No longer eligi ble based on patient's age to complete this topic Meningococcal B Vaccine Aged Out No l onger eligible based on patient's age to complete this topic Meningococcal Vaccine Aged Out No mohan asif eligible based on patient's age to complete this topic RSV under 20 months Aged Out No longe r eligible based on patient's age to complete this topic Rotavirus Vaccines Aged Out No longer eligible based on patient's age to complete this topic Procedures Procedure Name Priority Date/Time Associated Diagnosis Comments LIPID PANEL, STANDARD Routine 04/24/2024 10:30 AM EST Hypertriglyceridem ia BI MAMMOGRAM SCREENING TOMOSYNTHESIS BILATERAL Routine 04/12/2024 10:35 AM EST HEPATITIS C AB W/REFL TO HCV RNA, QN, PCR Routine 01/21/2024 11:12 AM EDT Annual physical exam HPV MRNA E6/E7 REFLEX TO HPV 16, 18/45 Routine 01/28/2023 11:14 AM EDT PAP SMEAR Routine 01/28/2023 11:14 AM EDT HM COLONOSCOPY Routine 06/16/2022 3:57 PM EST from Last 3 Months or Most Recently Relevant to Health Maintenance Results * (ABNORMAL) Lipid Panel, Standard (04/24/2024 10:30 AM EST) Triglycerides 193(H) <150 mg/dL [facility] Comment:Desirable Triglyceri de: less than 150 mg/dLBorderline High Triglyceride 150-199 mg/dLHigh Triglyceride: 200-499 mg/dLVery High Triglyceride: greater than or equal to 5OO mg/dL Cholesterol 157 <200 mg/dL [facility] Comment:Desirable Cholestero l: less than 200 mg/dLBorderline High Cholesterol: 200-239 mg/dLHigh Cholesterol: greater than 239 mg/dL LDL Cholesterol Calculated 80 <100 mg/dL [facility] Comment:Desirable LDL: less than 100 mg/dLNear Optimal/Above Optimal LDL: 110- 129 mg/dLBorderline High LDL: 130-159 mg/dLHigh LDL: 160-189 mg/dLVery High LDL: greater than or equal to 190 mg/dL HDL Cholesterol 39(L) >40 mg/dL [facility] Comment:Desirable HDL: great er than 40 mg/dL Note: This HDL assay may give artificially low results in patients with liver disease. Blood Venous blood specimen / Unknown 04/24/2024 10:30 AM EST 04/24/2024 1:14 PM EST Kim Arellano MD LAB BLOOD ORDERAB LES Final Result Performing Organization Address City/State/[facility] Co de Phone Number [facility] [address] [place] [phone] * BI Mammogram Screening Tomosynthesis Bilateral (04/12/2024 10:35 AM EST) Anatomical Region Laterality Modality Breast Bilateral Mammography 04/12/2024 10:3 5 AM EST Narrative 04/20/2024 6:18 PM EST [facility] [address] [place] [address] Mammography Report Signed Patient: Bridgett Sims MR#: [id number] 32 : 1960 Acct:[id number] Age/Sex: 63 / F ADM Date: 04/12/24 Loc: [facility] Attending Dr: Jaret Angela MD Ordering Physician: Jaret Angela MD Results: 1Negativ e Date of Service: 04/12/24 Follow Up: 1 Year From Orig inal Mammogram Procedure(s): MM tomosynthesis screening BI Accession Number(s): [id number] cc: Kim Goldman MD; Jaret Angela MD EXAMINATION: MM SCREENING DIGITAL BREAST TOMOSYNTHESIS, BILATERAL CLINICAL INFORMATION: Screening. Asymptomatic. COMPARISON: Mammography: Comparison is made with available priors TECHNIQUE: Digital breast mammography with tomosynthesis is performed in both the craniocaudal and mediolateral oblique views along with computer-aided detection (CAD). FINDINGS: There are scattered areas of fibroglandular density (ACR BI-RADS breast composition Category b). There are no significant masses, abnormal calcifications, or other abnormalities. MM/MM tomosynthesis screening BI IMPRESSION: No mammographic evidence of malignancy. ASSESSMENT: BI-RADS BI-RADS 1 - Negative RECOMMENDATION: Routine annual mammography screening. 1 year F/U This examination should not preclude the clinical evaluation of a suspicious palpable abnormality. This patient's information was entered into a reminder system with a target due date for their next mammogram. Electronically signed by: Daily Guzman DO 04/20/2024 06:15 PM [facility] Dictated By: Daily Guzman DO Signed By: <Electronically signed by Daily Guzman DO in OV> 04/20/24 1815 DD/ 1035 TD/TT: 04/12/24 1052 Manager Social Work: Procedure Note Donotuseinterpreter, Image - 04/20/2024 [facility] [address] [place], [place] [address] Mammography Report Signed Patient: Bridgett Sims AMR#: [id number] [birth year] : 1960Acct:[id number] Age/Sex: 63 / FADM Date: 04/12/24 Loc: HO.MAMMO Attending Dr: Jaret Angeal MD Ordering Physician: Jaret Angela MDResults: 1Negativ e Date of Service: 04/12/24Follow Up: 1 Year From Orig inal Mammogram Procedure(s): MM tomosynthesis screening BI Accession Number(s): [id number] cc: Kim Goldman MD; Jaret Angela MD EXAMINATION: MM SCREENING DIGITAL BREAST TOMOSYNTHESIS, BILATERAL CLINICAL INFORMATION: Screening. Asymptomatic. COMPARISON: Mammography: Comparison is made with available priors TECHNIQUE: Digital breast mammography with tomosynthesis is performed in both the craniocaudal and mediolateral oblique views along with computer-aided detection (CAD). FINDINGS: There are scattered areas of fibroglandular density (ACR BI-RADS breast composition Category b). There are no significant masses, abnormal calcifications, or other abnormalities. MM/MM tomosynthesis screening BI IMPRESSION: No mammographic evidence of malignancy. ASSESSMENT: BI-RADS BI-RADS 1 - Negative RECOMMENDATION: Routine annual mammography screening. 1 year F/U This examination should not preclude the clinical evaluation of a suspicious palpable abnormality. This patient's information was entered into a reminder system with a target due date for their next mammogram. Electronically signed by: Daily Guzman DO 04/20/2024 06:15 PM EST Dictated By: Daily Guzman DO Signed By: <Electronically signed by Daily Guzman DO in OV> 04/20/24 1815 DD/ 1035 TD/TT: 04/12/24 1052 Manager Social Work: [facility] External Provider IMG BI PROCEDURES Final Result * Hepatitis C Antibody with Reflex to HCV, RNA, Quantitative, Real-Time PCR (01/21/2024 11:12 AM EDT) Hepatitis C Antibody Nonreactive Nonreactive [facility] Comment:Antibodies to HCV no t detected; does not exclude early acuteHCV infection. Blood Venous blood specimen / Unknown 01/21/2024 11:12 AM EDT 01/21/2024 1:15 PM EDT Kim Arellano MD LAB BLOOD ORDERAB LES Final Result [facility] [address] [place] [phone] * HPV mRNA E6/E7 w/Reflex to HPV Genotypes 16, 18/45 (01/28/2023 11:14 AM EDT) HPV nRNA E6/E7 Not Detected Not Detected [facility] Comment:Methodology: Transcr iption-Mediated AmplificationThis assay detects E6/E7 viral messenger RNA (mRNA) from 14high-risk HPV types (16,18,31,33,35,39,45,51,52,56,58,59,66,68).Cervical sources are required for HPV testing.If a vaginal source from a patient who has had atotal hysterectomy with removal of cervix wassubmitted, please contact the testing laboratoryfor alternative testing options.For additional information, please refer tohttp://education.[employer]/faq/JDJ939l9(This link if provided for information/educational purposes only.)THIS TEST WAS PERFORMED AT:[facility] [place] [phone] GREENE MD HPV mRNA E6/E7 TNP [facility] HPV 16 RNA TNP [facility] HPV 18/45 RNA [facility] 01/28/2023 11:1 4 AM EDT 01/29/2023 12:00 PM EDT us Stan Silva [facility] CYTOLOGY ORDERABLES F inal Result [facility] [address] [place] [phone] * Pap Smear (01/28/2023 11:14 AM EDT) 01/28/2023 11:1 4 AM EDT 01/29/2023 12:00 PM EDT Narrative [facility] - 02/10/2023 11:14 AM EDT ----- ------- Name: Bridgett Sims Age/Sex: 62/F : 1960 Unit#: [id number] Attend Dr: STAN SILVA Jerry Re01/28/23 Status: DEP REF [facility] Disch: ----- ------- SPEC : [id number] RECD: 01/29/23-1199 STATUS: CLEOPATRA YAP NUM: [id number] NIDA: 01/28/23-[address]: STAN SILVA [facility] ENTERED: 01/29/23-1225 SP TYPE: Pap Smr OTHR DR: ORDERED: Pap Smear Interpretation Satisfactory for evaluation. Negative for intraepithelial lesion or malignancy. HPV mRNA E6/E7: NOT DETECTED This assay detects E6/E7 viral messenger RNA (mRNA) from 14 high-risk HPV types (16, 18, 31, 33, 35, 39, 45, 51, 52, 56, 58, 59, 66, 68) HPV testing performed by [employer], [place], [place]. See reference laboratory pion of the EMR for entire report. Clinical Information LMP:Unknown date Previous PAP test:01/2018, WN Material Received ThinPrep-Cervical ----- ------- Signed (signature on file) ANDREAS Cruz (ASCP) 02/10/23 1114 ----- ------- END OF REPORT Stan Silva CNM LAB CYTOLOGY ORDERABLES F inal Result [facility] [address] [place] [phone] * Hm Colonoscopy (06/16/2022 3:57 PM EST) Historical Provider HEALTH MAINTENANCE Final Result from Last 3 Months or Most Recently Relevant to Health Maintenance Insurance [facility] FULL AETNA MEDICARE REPLACEMENT Care Teams Chain Sales Consultant Relationship Specialty Start Date End Date Kim Goldman MD [address] [place] [address] PCP - General Internal Medicine 10/08/22
--- OUTSIDE RECORDS SUMMARY | 2025-04-18 18:58 | XMS_ITS | Encounter Summary ---
Author Organization [employer] Address [address] [facility] [address] [place] [address] Care Team Providers Care Customer Consultant Name Role Phone Kim Goldman MD Primary Care Pro vider Encounter Details Date Type Department Care Team ([facility] st Contact Info) Description 05/21/2024 Orders Only [facility] [address] [place], [place] [phone] Provider, MD Dorcas Social History Tobacco Use Types Packs/Day Years [...] your housing situation today? I have charles manisha 11/29/[address] you li [...] Description 07/10/2025 11:30 AM EST Office Visit [facility] [address] [place] [phone] Kim Goldman MD [address] [place] [phone] documented as of this encounter Procedures Procedure [...] documented as of this encounter Care Teams Customer Consultant Relationship Specialty Start Date End Date Kim Goldman MD [address] [place] [address] [phone] PCP - General Internal Medicine 10/08/22 documented as of this encounter
--- OUTSIDE RECORDS SUMMARY | 2025-04-18 18:58 | XMS_ITS | Encounter Summary ---
Author Organization [employer] Address [address] [place] [address] 7[address] [place] [address] Care Team Providers Care Swahili Teacher Name Role Phone Kim Goldman MD Primary Care Pro vider Reason for Visit * Reason Comments Med Change Request Encounter Details Date Type Department Care Team ([facility] st Contact Info) Description 03/15/2025 Refill [facility] [address] [place] [address] Kim Goldman MD [address] [place] [address] Primary hypertension Social History Tobacco Use Types Packs/Day Years [...] AM EDT documented as of this encounter Functional Status * Over the past 2 weeks, how often have you been bothered by any of the following problems? Question Answer Date of Assessment Author Patient Health Questionnaire -2 Score 0 03/15/2025 11:37 AM EDT Mima Hare MA * Little interest or pleasure in doing things Answer Date of Assessment Author Not at all 03/15/2025 11:37 AM EDT Mima Hare MA * Feeling down, depressed, or hopeless Answer Date of Assessment Author Not at all 03/15/2025 11:37 AM FLORECITAT Mima Hare MA * Trouble falling or staying asleep, or sleeping too much Answer Date of Assessment Author Not at all 03/15/2025 11:37 AM EDT Mima Hare MA * Feeling tired or having little energy Answer Date of Assessment Author Not at all 03/15/2025 11:37 AM FLORECITAT Mima Hare MA * Poor appetite or overeating Answer Date of Assessment Author Not at all 03/15/2025 11:37 AM FLORECITAT Mima Hare MA * Feeling bad about yourself - or that you are a failure or have let yourself or your family down Answer Date of Assessment Author Not at all 03/15/2025 11:37 AM Mima Molina MA * Trouble concentrating on things, such as reading the newspaper or watching television Answer Date of Assessment Author Not at all 03/15/2025 11:37 AM Mima Molina MA * Moving or speaking so slowly that other people could have noticed? Or the opposite - being so fidgety or restless that you have been moving around a lot more than usual. Answer Date of Assessment Author Not at all 03/15/2025 11:37 AM Mima Molina MA * Thoughts that you would be better off or hurting yourself in some way Answer Date of Assessment Author Not at all 03/15/2025 11:37 AM Mima Molina MA * Patient Health Questionnaire-9 Score Answer Date of Assessment Author 0 03/15/2025 11:37 AM Mima Molina MA * Over the last 2 weeks, how often have you been bothered by any of the following problems? Question Answer Date of Assessment Author Feeling nervous, anxious, or on edge 0 03/15/2025 11:37 AM Mima Molina MA Not being able to stop or co ntrol worrying 0 03/15/2025 11:37 AM Mima Molina MA Worrying too much about diff erent things 0 03/15/2025 11:37 AM Mima Molina MA Trouble relaxing 0 03/15/2025 11:37 AM Mima Molina MA Being so restless that it is hard to sit still 0 03/15/2025 11:37 AM Mima Molina MA Becoming easily annoyed or irritable 0 03/15/2025 11:37 AM Mima Molina MA Feeling afraid as if somethi ng awful might happen 0 03/15/2025 11:37 AM Mima Molina MA ANKIT-7 Total Score 0 03/15/2025 11:37 AM Mima Molina MA documented as of this encounter Plan of Treatment Upcoming Encounters Date Type Department Care Team (Sharon Contact Info) Description 07/10/2025 11:30 AM EST Office Visit [facility] [address] [place] [address] Kim Goldman MD [address] [place], [place] [phone] documented as of this encounter Visit Diagnoses Diagnosis Primary hypertension Unspecified essential hypertension documented in this encounter Additional Health Concerns Assessment Noted Time PHQ-9 Depression Total Score: 0 03/15/20 25 11:37 AM EDT documented as of this encounter Care Teams Swahili Teacher Relationship Specialty Start Date End Date Kim Goldman MD [address] [place], [place] [phone] PCP - General Internal Medicine 10/08/22 documented as of this encounter
== END 2025-04-18 10:05 | disposition home or self-care (01) ==
LOC: HO.MAMMO 10:04
PROVIDERS: PCP Student in an Organized Health Care Education/Training Program; Visit Provider Student in an Organized Health Care Education/Training Program
DX: Z12.31 Encounter for screening mammogram for malignant neoplasm of breast (principal)
CPT/HCPCS: 77063; 77067

== ENCOUNTER → 2025-04-18 10:45 | Outpatient (BNV) | payer MEDICARE, MEDICAID, SELFPAY | PROVIDERS: PCP Student in an Organized Health Care Education/Training Program; Visit Provider Radiology Body Imaging | DX: Z12.31 Encounter for screening mammogram for malignant neoplasm of breast (principal) | CPT/HCPCS: 77063; 77067 ==

== ENCOUNTER 2025-05-25 10:08 | Outpatient (REF) | payer MEDICARE, MEDICAID, SELFPAY ==
--- NOTE | ~2025-05-25 | US_ITS ---
EXAMINATION(S): 1. MM DIAGNOSTIC DIGITAL BREAST TOMOSYNTHESIS, LEFT 2. TARGETED ULTRASOUND OF THE LEFT BREAST CLINICAL INFORMATION: Callback from screening for left breast focal asymmetry in the lower inner quadrant at about 4 cm from the nipple. COMPARISON: Comparison made to multiple prior, most recent April 18, 2025, and most remote March 13, 2022. TECHNIQUE: Digital breast tomosynthesis is performed in full field ML 90 degrees along with computer-aided detection (CAD). Synthesized 2D images are generated from the tomosynthesis. Spot compression tomosynthesis were obtained. FINDINGS: BREAST COMPOSITION: There are scattered areas of fibroglandular density. LEFT BREAST: Previously suggested focal asymmetry in the lower inner quadrant presses out with spot compression. On today's images, the local parenchyma is similar to multiple prior studies as far back as 2021, and most likely represented overlapping fibroglandular breast tissue. Targeted ultrasound of the left breast was performed at the location of the mammographic finding. The survey performed throughout the lower inner quadrant did not reveal suspicious sonographic findings. US/US Breast LT Limited Mamm Only IMPRESSION: LEFT BREAST: Negative, no evidence of malignancy. Normal interval follow-up is recommended in 12 months. ASSESSMENT: BI-RADS: Category 1: Negative RECOMMENDATION: 1 year F/U Results were provided to the patient at time of visit by the technologist. This patient's information was entered into a reminder system with a target due date for their next mammogram. Electronically signed by: Hamilton Virgen MD 05/25/2025 11:[address] [facility]
--- OUTSIDE RECORDS SUMMARY | 2025-05-25 10:11 | XMS_ITS | Clinical Summary ---
Author Organization [employer] Address [address] [facility] 7t [place] [address] Care Team Providers Care Commercial Airline Pilot Name Role Phone Kim Goldman MD Primary [...] mouth Once per day. 90 tablet 1 04/24/2025 10:30 AM EST 5 Active omega-3 acid ethyl esters (Lovaza) [...] week BP -pt has upcoming visit w biology intern in 12/2022 And will discuss the need [...] Assessment & Plan (02/18/2023 10:59 AM EDT): Bud patch is located on mid back, I gave pt information about Dx. Prescription of betamethasone+ benadryl caps to use PRN. Avoid sun exposure when using steroid cream. Refer to clinic RTC in 4-6 weeks if she doesn't notice results. Encounters Date Type Department Care Team Description 04/18/2025 Orders Only [facility] [address] [place] [phone] Kim Goldman MD 04/13/2025 Telephone [facility] [place] [address] Kim Goldman MD feb recall 04/06/2025 2:00 PM EST Office Visit [facility] [place] [address] [place], [place] Preop examination (Primary Dx); Benign hypertension 04/06/2025 Travel 04/05/2025 Telephone [facility] [place] [address] Kim Goldman MD chartprep 03/30/2025 Telephone [facility] [address] [place] [address] Kim Goldman MD Pre-op Exam 03/15/2025 10:45 AM EDT Office Visit [facility] [address] [place] [address] Kim Goldman MD Hypertriglyceridemia (Primary Dx); Primary hypertension; Annual physical exam 03/15/2025 Refill [facility] [address] [place] [address] Kim Goldman MD Primary hypertension 03/15/2025 Travel 03/14/2025 Telephone [facility] [address] [place] [phone] Kim Goldman MD chart prep 03/08/2025 Patient Outreach [facility] [address] [place] [phone] Kim Goldman MD Pre-visit Planning (Pre-visit planning - voicemail not set up ) 03/05/2025 11:00 AM EDT Office Visit [facility] [address] [place] [address] Jah, Lisa, OD Combined forms of age-related [...] Description 07/10/2025 11:30 AM EST Office Visit [facility] [address] [place], [place] [phone] Kim Goldman MD [address] [place], [place] [phone] Health Maintenance Due Date Last Done Comments CT Colonography 1960 FIT DNA/Cologuard 1960 FIT 1960 FOBT 1960 Sigmoidoscopy 1960 Alcohol/Substance Use Screening 1971 Pneumococcal Vaccine: 50+ Years (1 of 1 - PCV) 11/12/2009 Zoster Vaccines (1 of 2) 11/12/2009 COVID-19 Vaccine (3 - season) 2025 09/04/2020, 08/07/2020 Influenza Vaccine (#1) 2025 8, 03/02/2017, 04/13/2016, Additional history exists Diagnostic Breast Imaging 04/23/2025 10/03/2019, 04/2019 SDOH Screening 12/06/2025 12/06/2024 Depression Screening 03/15/2026 03/15/2025, 03/15/20 25 Tobacco Screening 04/06/2026 04/06/2025 Cervical Cancer Screening 01/29/2028 HPV/Cotest 01/29/2028 01/28/2023, 02/02/2018 Pap Smear 01/29/2028 01/28/2023 DTaP/Tdap/Td Vaccines (2 - Td or Tdap) 10/27/2028 10/27/2018, 06/02/2007 Lipid Panel 04/24/2029 04/24/2024, 08/2 07/2023, 03/29/2023, Additional history exists Colonoscopy 06/16/2032 06/16/2022, [...] Procedure Name Priority Date/Time Associated Diagnosis Comments BI MAMMOGRAM SCREENING TOMOSYNTHESIS BILATERAL Routine 04/18/2025 10:19 AM EST LIPID PANEL, STANDARD Routine 04/24/2024 10:30 AM EST Hypertriglyceridem ia HEPATITIS C AB W/REFL TO HCV RNA, QN, PCR Routine 01/21/2024 11:12 AM EDT Annual physical exam HPV MRNA E6/E7 REFLEX TO HPV 16, 18/45 Routine 01/28/2023 11:14 AM EDT PAP SMEAR Routine 01/28/2023 11:14 AM EDT HM COLONOSCOPY Routine 06/16/2022 3:57 PM EST BI MAMMOGRAM DIAGNOSTIC BILATERAL Routine 10/03/2019 12:47 PM EDT from Last 3 Months or Most Recently Relevant to Health Maintenance Results * BI Mammogram Screening Tomosynthesis Bilateral (04/18/2025 10:19 AM EST) Anatomical Region Laterality Modality Breast Bilateral Mammography 04/18/2025 10:1 9 AM EST Narrative 04/22/2025 4:54 PM EST [place] [facility] [address] [place], [place] [address] Mammography Report Signed Patient: Bridgett Sims MR#: [id number] 33 : 1960 Acct:[id number] Age/Sex: 64 / F ADM Date: 04/18/25 Loc: HO.MAMMO Attending Dr: Kim Arellano MD Ordering Physician: Kim Goldman MD Results: 0Incomplete- Need Additional Imaging Evaluation Date of Service: 04/18/25 Follow Up: Additional Imagi ng Procedure(s): MM tomosynthesis screening BI Accession Number(s): [id number] cc: Kim Goldman MD Reason For Exam: SCREENING EXAMINATION: MM SCREENING DIGITAL BREAST TOMOSYNTHESIS, BILATERAL CLINICAL INFORMATION: Screening. Asymptomatic. COMPARISON: Comparison made to multiple prior, most recent April 12, 2024, and most remote October 11, 2018. TECHNIQUE: Digital breast tomosynthesis is performed in mediolateral oblique and craniocaudal views along with computer-aided detection (CAD). Synthesized 2D images are generated from the tomosynthesis. FINDINGS: BREAST COMPOSITION: There are scattered areas of fibroglandular density. RIGHT BREAST: No significant masses, suspicious calcifications or other abnormalities are seen. LEFT BREAST: Approximately 0.7 cm focal asymmetry in the lower inner quadrant middle depth at about 4 cm from the nipple (MLO 18/48, CC 21/50). No suspicious calcifications or other abnormalities are seen. MM/MM tomosynthesis screening BI IMPRESSION: RIGHT BREAST: Negative, no mammographic evidence of malignancy. Normal interval follow-up is recommended in 12 months. LEFT BREAST: Approximately 0.7 cm focal asymmetry in the lower inner quadrant middle depth. ASSESSMENT: BI-RADS: Category 0: Incomplete - Need additional Imaging Evaluation RECOMMENDATION: 1. Additional views of the left breast. 2. Targeted ultrasound if warranted after review of the additional views. 3. Radiology department staff will contact the patient for additional imaging. FOLLOW-UP: Additional Imaging required This examination should not preclude the clinical evaluation of a suspicious palpable abnormality. This patient's information was entered into a reminder system with a target due date for their next mammogram. Electronically signed by: Hamilton Virgen MD 04/22/2025 04:51 PM EST Dictated By: Hamilton Virgen MD Signed By: <Electronically signed by Hamilton Virgen MD in OV> 04/22/25 1651 DD/ 1019 TD/TT: 04/18/25 1025 Civil Engineer In Training: Procedure Note Donotuseinterpreter, Image - 04/22/2025 [facility] [address] [place] [address] Mammography Report Signed Patient: Bridgett Sims AMR#: [id number] 33 : 1960Acct:[id number] Age/Sex: 64 / FADM Date: 04/18/25 Loc: HO.MAMMO Attending Dr: Kim Arellano MD Ordering Physician: Kim Goldman MD Results: 0Incomplete- Need Additional Imaging Evaluation Date of Service: 04/18/25Follow Up: Additional Imagi ng Procedure(s): MM tomosynthesis screening BI Accession Number(s): [id number] cc: Kim Goldman MD Reason For Exam: SCREENING EXAMINATION: MM SCREENING DIGITAL BREAST TOMOSYNTHESIS, BILATERAL CLINICAL INFORMATION: Screening. Asymptomatic. COMPARISON: Comparison made to multiple prior, most recent April 12, 2024, and most remote October 11, 2018. TECHNIQUE: Digital breast tomosynthesis is performed in mediolateral oblique and craniocaudal views along with computer-aided detection (CAD). Synthesized 2D images are generated from the tomosynthesis. FINDINGS: BREAST COMPOSITION: There are scattered areas of fibroglandular density. RIGHT BREAST: No significant masses, suspicious calcifications or other abnormalities are seen. LEFT BREAST: Approximately 0.7 cm focal asymmetry in the lower inner quadrant middle depth at about 4 cm from the nipple (MLO 18/48, CC 21/50). No suspicious calcifications or other abnormalities are seen. MM/MM tomosynthesis screening BI IMPRESSION: RIGHT BREAST: Negative, no mammographic evidence of malignancy. Normal interval follow-up is recommended in 12 months. LEFT BREAST: Approximately 0.7 cm focal asymmetry in the lower inner quadrant middle depth. ASSESSMENT: BI-RADS: Category 0: Incomplete - Need additional Imaging Evaluation RECOMMENDATION: 1. Additional views of the left breast. 2. Targeted ultrasound if warranted after review of the additional views. 3. Radiology department staff will contact the patient for additional imaging. FOLLOW-UP: Additional Imaging required This examination should not preclude the clinical evaluation of a suspicious palpable abnormality. This patient's information was entered into a reminder system with a target due date for their next mammogram. Electronically signed by: Hamilton Virgen MD 04/22/2025 04:51 PM EST Dictated By: Hamilton Virgen MD Signed By: <Electronically signed by Hamilton Virgen MD in OV> 04/22/25 1651 DD/ 1019 TD/TT: 04/18/25 1025 Civil Engineer In Training: Kim Arellano MD IMG BI PROCEDURES Final Result * (ABNORMAL) Lipid Panel, Standard (04/24/2024 10:30 AM EST) Triglycerides 193(H) <150 mg/dL [facility] Comment:Desirable Triglyceri de: less than 150 mg/dLBorderline High Triglyceride 150-199 mg/dLHigh Triglyceride: 200-499 mg/dLVery High Triglyceride: greater than or equal to 5OO mg/dL Cholesterol 157 <200 mg/dL [facility] Comment:Desirable Cholestero l: less than 200 mg/dLBorderline High Cholesterol: 200-239 mg/dLHigh Cholesterol: greater than 239 mg/dL LDL Cholesterol Calculated 80 <100 mg/dL [facility] Comment:Desirable LDL: less than 100 mg/dLNear Optimal/Above Optimal LDL: 110- 129 mg/dLBorderline High LDL: 130-159 mg/dLHigh LDL: 160-189 mg/dLVery High LDL: greater than or equal to 190 mg/dL HDL Cholesterol 39(L) >40 mg/dL [facility] Comment:Desirable HDL: great er than 40 mg/dL Note: This HDL assay may give artificially low results in patients with liver disease. Blood Venous blood specimen / Unknown 04/24/2024 10:30 AM EST 04/24/2024 1:14 PM EST us Kim Arellano MD LAB BLOOD ORDERAB LES Final Result Performing Organization Address City/[facility]/ZIP Co de Phone Number [facility] [address] [place] [phone] * Hepatitis C Antibody with Reflex to HCV, RNA, Quantitative, Real-Time PCR (01/21/2024 11:12 AM EDT) Hepatitis C Antibody Nonreactive Nonreactive [facility] Comment:Antibodies to HCV no t detected; does not exclude early acuteHCV infection. Blood Venous blood specimen / Unknown 01/21/2024 11:12 AM EDT 01/21/2024 1:15 PM EDT us Kim Arellano MD LAB BLOOD ORDERAB LES Final Result Performing Organization Address City/[facility]/ZIP Co de Phone Number [facility] [address] [place] [phone] * HPV mRNA E6/E7 w/Reflex to HPV Genotypes 16, 18/45 (01/28/2023 11:14 AM EDT) HPV nRNA E6/E7 Not Detected Not Detected [facility] Comment:Methodology: Transcr iption-Mediated AmplificationThis assay detects E6/E7 viral messenger RNA (mRNA) from 14high-risk HPV types (16,18,31,33,35,39,45,51,52,56,58,59,66,68).Cervical sources are required for HPV testing.If a vaginal source from a patient who has had atotal hysterectomy with removal of cervix wassubmitted, please contact the testing laboratoryfor alternative testing options.For additional information, please refer tohttp://[employer]/faq/CEM658y0(This link if provided for information/educational purposes only.)THIS TEST WAS PERFORMED AT:[employer] [place] [phone] GREENE MD HPV mRNA E6/E7 TNP [facility] HPV 16 RNA TNP [facility] HPV 18/45 RNA TNP [facility] 01/28/2023 11:1 4 AM EDT 01/29/2023 12:00 PM EDT us Stan Silva CNM LAB CYTOLOGY ORDERABLES F inal Result [facility] [address] [place] [phone] [phone] * Pap Smear (01/28/2023 11:14 AM EDT) 01/28/2023 11:1 4 AM EDT 01/29/2023 12:00 PM EDT Narrative [facility] - 02/10/2023 11:14 AM EDT ----- ------- Name: Bridgett Sims Age/Sex: 62/F : 1960 Unit#: [id number] Attend Dr: STAN SILVA CNM Re01/28/23 Status: DEP REF Location: HO.HHCLNP Disch: ----- ------- SPEC : [id number] RECD: 01/29/23-1199 STATUS: CLEOPATRA YAP NUM: [id number] NIDA: 01/28/23-1114 [facility] DR: STAN SILVA CNM ENTERED: 01/29/23-1225 SP TYPE: Pap Smr OTHR DR: ORDERED: Pap Smear Interpretation Satisfactory for evaluation. Negative for intraepithelial lesion or malignancy. HPV mRNA E6/E7: NOT DETECTED This assay detects E6/E7 viral messenger RNA (mRNA) from 14 high-risk HPV types (16, 18, 31, 33, 35, 39, 45, 51, 52, 56, 58, 59, 66, 68) HPV testing performed by [employer], [place], [place]. See reference laboratory pion of the EMR for entire report. Clinical Information LMP:Unknown date Previous PAP test:01/2018, WNL Material Received ThinPrep-Cervical ----- ------- Signed (signature on file) ANDREAS Cruz (ASCP) 02/10/23 1114 ----- ------- END OF REPORT Stan Silva CNM LAB CYTOLOGY ORDERABLES F inal Result [facility] [address] [place] [phone] * Hm Colonoscopy (06/16/2022 3:57 PM EST) us Historical Provider HEALTH MAINTENANCE Final Result * 3D BILATERAL DIAGN MAMMO 1 (10/03/2019 12:47 PM EDT) Anatomical Region Laterality Modality Breast Bilateral Mammography 10/03/2019 12:4 7 PM EDT Narrative 10/03/2019 12:47 PM EDT Refer to the Notes tab for result details [facility] Procedure: 3D BILATERAL DIAGN MAMMO 1 Procedure Note Provider, Dorcas, - 08/22/2022 Refer to the Notes tab for result details [facility] Procedure: 3D BILATERAL DIAGN MAMMO 1 us Tati Louise MD IMG BI PROCEDURES Final Resu lt from Last 3 Months or Most Recently Relevant to Health Maintenance Insurance [facility] FULL AETNA MEDICARE REPLACEMENT Care Teams Commercial Airline Pilot Relationship Specialty Start Date End Date Kim Goldman MD [address] [place] [address] PCP - General Internal Medicine 10/08/22
--- OUTSIDE RECORDS SUMMARY | 2025-05-25 10:11 | XMS_ITS | Encounter Summary ---
Author Organization [employer] Address [address] [facility] 7t [place] [address] Care Team Providers Care Print Inspector Name Role Phone Kim Goldman MD Primary Care Pro vider Encounter Details Date Type Department Care Team ([facility] st Contact Info) Description 05/21/2024 Orders Only [facility] [address] [place], [place] [phone] Provider, MD Dorcas Social History Tobacco Use [...] Description 07/10/2025 11:30 AM EST Office Visit [facility] [address] [place] [phone] Kim Goldman MD [address] [place] [phone] documented as of this encounter Procedures Procedure [...] documented as of this encounter Care Teams Print Inspector Relationship Specialty Start Date End Date Kim Goldman MD [address] [place] [address] [phone] PCP - General Internal Medicine 10/08/22 documented as of this encounter
--- OUTSIDE RECORDS SUMMARY | 2025-05-25 10:11 | XMS_ITS | Encounter Summary ---
Author Organization [employer] Address [address] [place] [address] 7t [place] [address] Care Team Providers Care Business Intelligence Manager Name Role Phone Kim Goldman MD Primary Care Pro vider Reason for Visit * Reason Comments Med Change Request Encounter Details Date Type Department Care Team ([facility] st Contact Info) Description 03/15/2025 Refill [facility] [address] [place] [address] Kim Goldman MD [address] [place] [phone] Primary hypertension Social History Tobacco Use Types [...] Description 07/10/2025 11:30 AM EST Office Visit [facility] [address] [place] [phone] Kim Goldman MD [address] [place] [phone] documented as of this encounter Visit Diagnoses Diagnosis Primary hypertension Unspecified essential hypertension documented in this encounter Additional Health Concerns Assessment Noted Time PHQ-9 Depression Total Score: 0 03/15/20 25 11:37 AM EDT documented as of this encounter Care Teams Business Intelligence Manager Relationship Specialty Start Date End Date Kim Goldman MD [address] [place] [phone] PCP - General Internal Medicine 10/08/22 documented as of this encounter
== END 2025-05-25 10:09 | disposition home or self-care (01) ==
LOC: HO.MAMMO 10:08
PROVIDERS: PCP Student in an Organized Health Care Education/Training Program; Visit Provider Student in an Organized Health Care Education/Training Program
DX: N64.89 Other specified disorders of breast (principal)
CPT/HCPCS: 76642; 77061; 77065

== ENCOUNTER → 2025-05-25 10:30 | Outpatient (BNV) | payer MEDICARE, MEDICAID, SELFPAY | PROVIDERS: PCP Student in an Organized Health Care Education/Training Program; Visit Provider Radiology Body Imaging | DX: R92.8 Other abnormal and inconclusive findings on diagnostic imaging of breast (principal) | CPT/HCPCS: 76642; 77065; G0279 ==